=== PATIENT | female | born 1940 | race Caucasian/White ===

== ENCOUNTER → 2017-03-27 11:27 | Outpatient (CLI) | payer MEDICARE, SELFPAY ==
[2017-03-27 12:31] LABS: Basophils # 0.1 K/mm3 (0-0.2); Eosinophils # 0.2 K/mm3 (0.0-0.4); Eosinophils % 2.5 % (0.1-12.0); Hematocrit 44.3 % (37.0-47.0); Hemoglobin 14.2 g/dL (12.2-16.2); Lymphocytes # 1.8 K/mm3 (0.7-4.5); Lymphocytes % 28.2 K/mm3 (10-50); Mean Corpuscular HGB Conc 32.2 g/dL (31.8-35.4); Mean Corpuscular Hemoglobin 30.4 pg (27.0-31.2); Mean Corpuscular Volume 94.5 fl (81-99); Mean Platelet Volume 7.3 fl (7.4-10.4); Monocytes # 0.4 K/mm3 (0.1-1.0); Monocytes % 6.2 % (1.7-9.3); Neutrophils # 3.8 K/mm3 (1.8-7.8); Neutrophils % 62.1 % (37.0-80.0); Platelet Count 361 K/mm3 (142-424); Red Blood Count 4.68 M/mm3 (4.20-5.40); Red Cell Distribution Width 12.6 % (11.5-17.5); White Blood Count 6.2 K/mm3 (4.8-10.8)
[2017-03-27 13:15] LABS: Anion Gap 7.2 mEq/L (5-15); Blood Urea Nitrogen 20 mg/dL (7-18); Carbon Dioxide 35 mmol/L (21.0-32.0); Chloride 101 mmol/L (98-107); Creatinine,Serum 0.58 mg/dL (0.55-1.02); Estimated Glomerular Filt Rate > 60 ml/min (>60); GFR (African American) > 60 ML/MIN (>60); Glucose 107 mg/dL (74-106); Potassium 4.2 mmoL/L (3.5-5.1); Sodium 139 mmol/L (136-145)
== END ==
PROVIDERS: PCP Surgery; Visit Provider Surgery
DX: K43.2 Incisional hernia without obstruction or gangrene (principal); Z01.818 Encounter for other preprocedural examination
CPT/HCPCS: 36415; 80048; 85025

== ENCOUNTER 2017-03-30 06:54 | Day surgery (SDC) | payer MEDICARE, SELFPAY ==
[2017-03-29 16:52] VITALS: BMI 28.3
[2017-03-30] VITALS (11 sets, daily range): BP systolic 101–135; BP diastolic 56–84; PULSE 71–83; RESP 16–18; TEMP 36.4–43; O2SAT 91–96
--- NOTE | 2017-03-30 08:03 | HMH.ANESCL ---
[facility] Anesthesia Checklist - Patient Identification Patient Identification: Arm Band - Structural Data Admitted From: Home Planned Operative Procedure/s: ventral hernia repair Consent for Planned Operative Procedure(s) Verified: Yes Verified Documents: Surgical Consent - NPO Status Verified Time NPO: 00:00 - Chart Verification Results Verified: CBC - Additional verifications Patient : No Anesthesia Reactions: No Previous Colonoscopy: Yes - Cardiovascular Assessment Heart Sounds: S1 & S2 Pulse Strength: Strong Pulse Rhythm: Regular Peripheral Edema: No - Airway Assessment C-Spine Mobility Assessed: Yes TMJ Mobility Assessed: Yes Dentition: Partials - Neurological Assessment Level of Consciousness: Awake, Alert, Follows Commands Hx Seizures: No Numbness or tingling in extremities: No - Genitourinary Assessment Urinary Incontinence: None - Anesthesia Plan Anesthesia Risk discussed: Yes Anesthesia Plan: Patient unable to respond/answer ASA Class: III Anesthesia Type: General [facility] Anesthesia HX I have reviewed the patient's past medical history: Yes Medical History: Reports:: Congestive Heart Failure, Chronic Obstructive Pulmonary Disease (COPD), Coronary Artery Disease, Deep Vein Thrombosis, Gastroesophageal Reflux Disease, Hypertension, MRSA (after bowel resection) Denies:: Cancer, Diabetes Mellitus Type 1, Diabetes Mellitus Type 2 Other Medical History: Reports: Thyroid Disease Laterality Cases: Left: Cataract, Right: Total Hip Replacement, Bilateral: Tonsillectomy Other Surgeries: Yes: Hysterectomy-Total. No: Pacemaker Amputation: No Fractures: Yes (hip & femur) *Family Hx:: Anemia, Cancer, Coronary Artery Disease, Heart Attack, Hyperlipidemia, Hypertension, Stroke
--- NOTE | 2017-03-30 08:06 | P.PN_ITS ---
[facility] Anesthesia Checklist - Patient Identification Patient Identification: Arm Band - Structural Data Admitted From: Home Planned Operative Procedure/s: ventral hernia repair Consent for Planned Operative Procedure(s) Verified: Yes Verified Documents: Surgical Consent - NPO Status Verified Time NPO: 00:00 - Chart Verification Results Verified: CBC - Additional verifications Patient : No Anesthesia Reactions: No Previous Colonoscopy: Yes - Cardiovascular Assessment Heart Sounds: S1 & S2 Pulse Strength: Strong Pulse Rhythm: Regular Peripheral Edema: No - Airway Assessment C-Spine Mobility Assessed: Yes TMJ Mobility Assessed: Yes Dentition: Partials - Neurological Assessment Level of Consciousness: Awake, Alert, Follows Commands Hx Seizures: No Numbness or tingling in extremities: No - Genitourinary Assessment Urinary Incontinence: None - Anesthesia Plan Anesthesia Risk discussed: Yes Anesthesia Plan: Patient unable to respond/answer ASA Class: III Anesthesia Type: General [facility] Anesthesia HX I have reviewed the patient's past medical history: Yes Medical History: Reports:: Congestive Heart Failure, Chronic Obstructive Pulmonary Disease (COPD), Coronary Artery Disease, Deep Vein Thrombosis, Gastroesophageal Reflux Disease, Hypertension, MRSA (after bowel resection) Denies:: Cancer, Diabetes Mellitus Type 1, Diabetes Mellitus Type 2 Other Medical History: Reports: Thyroid Disease Laterality Cases: Left: Cataract, Right: Total Hip Replacement, Bilateral: Tonsillectomy Other Surgeries: Yes: Hysterectomy-Total. No: Pacemaker Amputation: No Fractures: Yes (hip & femur) *Family Hx:: Anemia, Cancer, Coronary Artery Disease, Heart Attack, Hyperlipidemia, Hypertension, Stroke
--- NOTE | 2017-03-30 10:17 | SUR.OPER ---
1000-IPC ON AND GOING TO LLE PER PT REQUEST R/T PAIN AND DISCOMFORT OF EXTREMITY. NOTIFIED
--- NOTE | 2017-03-30 11:14 | HMH.OPNOTE ---
Date of procedure: 03/30/17 Pre-op Diagnosis:: Recurrent incisional ventral hernia Post-op diagnosis:: same Procedure performed:: Open repair of recurrent ventral incisional hernia with VentraLex patch Surgeon:: Perry Sebastian MD Anesthesia: other (General with LMA) Estimated blood loss (mL): 10 Operative findings:: 2.5 cm defect at site of prior primary repair Operative note:: After informed consent was obtained, the patient was taken to the operating room and placed in the supine position. General anesthesia was induced and her abdomen was prepped and draped in a sterile fashion. An incision was made overlying the palpable defect. A combination of sharp dissection, blunt dissection, and electrocautery was utilized to transect through the deeper subcutaneous tissue. A complex hernia sac was encountered and resected. A 2.5 cm defect was encountered. The lateral and superior margins were free of underlying tissue; however, a loop of small bowel was densely adhered to the inferior margin. Careful dissection was utilized to free the loop of small bowel. A 6.4 cm VentraLex plug was placed in position and secured with interrupted Ethibond suture. Interrupted Ethibond was then utilized to create a primary closure over the mesh. The wound was thoroughly irrigated. The deep subcutaneous tissue was reapproximated with 2-0 Vicryl and skin was closed with 4-0 nylon in an interrupted fashion. Sterile dressings were applied. The patient's anesthetic agents were reversed and she was transferred to recovery after removal of her laryngeal mask airway. Pathology: other (Hernia sac) Condition: stable Disposition: PACU Specimens:: Hernia sac Complications:: No immediate
--- NOTE | 2017-03-30 11:31 | P.PN_ITS ---
[facility] Anesthesia Record Part I Intake, IV Amount: 1,400 Estimated blood loss (mL): 25 Urine output (mL): 400 Blood Products used (#): none Blood Pressure: 135/84 SaO2: 92 Pulse Rate: 80 Respiratory Rate: 18 Temperature: 97.9 F Patient is:: Drowsy, Stable Stable to PACU at:: 11:27
--- NOTE | 2017-03-30 11:31 | HMH.ANESII ---
[facility] Anesthesia Record Part II Discharge Time: 11:57 Destination: Surgical Day Care (OP Surgery) PACU nurse assessment reviewed?: Yes Patient Condition:: Good Anesthesia Complications:: None
[2017-03-30 16:00] LABS: Microscopic,Cath URINE MICROSCOPIC (MICROSCOPIC)
[2017-03-30 16:19] LABS: Appearance,Urine/Cath CLEAR (Clear); Bilirubin,Cath Negative (Negative); Blood, Urine/Cath Negative (Negative); Color,Urine/Cath YELLOW (Yellow); Glucose,Urine/Cath (UA) Negative (Negative); Ketones,Urine/Cath Negative (Negative); Leukocyte Esterase,Cath Negative (Negative); Nitrate,Cath Negative (Negative); Protein,Urine/Cath Negative (Negative); Urobilinogen,Cath 0.2 EU/dl (0.2)
[2017-03-30 16:30] LABS: Bacteria,Urine/Cath TRACE /lpf
== END 2017-03-30 13:18 | disposition home or self-care (01) ==
LOC: OR 07:01
PROVIDERS: PCP Internal Medicine; Visit Provider Surgery
DX: K43.2 Incisional hernia without obstruction or gangrene (principal)
CPT/HCPCS: 49565; 49568; 81001; 88302; 96374; C1781; J0131; J2405; J2710

== ENCOUNTER → 2017-07-26 12:51 | Outpatient (POV) | payer MEDICARE, SELFPAY | PROVIDERS: Visit Provider Dermatology | DX: Z00.00 Encounter for general adult medical examination without abnormal findings (principal) ==

== ENCOUNTER → 2017-12-05 14:21 | Outpatient (POV) | payer MEDICARE, SELFPAY | DX: Z00.00 Encounter for general adult medical examination without abnormal findings (principal) ==

== ENCOUNTER → 2018-07-30 14:00 | Outpatient (POV) | payer MEDICARE, SELFPAY | PROVIDERS: Visit Provider Dermatology | DX: Z00.00 Encounter for general adult medical examination without abnormal findings (principal) ==

== ENCOUNTER → 2018-11-27 11:46 | Outpatient (CLI) | payer MEDICARE, SELFPAY ==
--- NOTE | 2018-11-27 12:00 | CT_ITS ---
PROCEDURE: CT ABDOMEN PELVIS WO CON CLINICAL HISTORY: LLQ PAIN,ABD PAIN COMPARISON: ABDPELW/O CT ABD PELVIS W/O CONTRAST from 10/21/2016 TECHNIQUE: Axial images obtained with sagittal and coronal reformats. All CT scans at the facility use one or more dose reduction, viz: automated exposure control, ma/kV adjustment per patient size (including targeted exams where dose is matched to indication, i.e. head), or iterative reconstruction technique. FINDINGS: There is a large hiatal hernia which contains the entire stomach as well as the hepatic flexure and proximal transverse colon. There is thickening of the distal esophagus and the GE junction as well as the cardia of the stomach. The pancreas, adrenal glands, and liver have an unremarkable appearance as does the spleen. Left renal cysts are present. Nonobstructing 2 mm stone is present in the lower pole of the right kidney. No intestinal obstruction or free air. No evidence of appendicitis or diverticulitis. There is a mild amount of retained colonic feces. Postsurgical changes are present involving the colon in the sigmoid region with scattered diverticula.. There is mild distention of the urinary bladder. There is lumbar curvature convex left with multilevel facet arthritic change and degenerative disc disease. There are post hysterectomy changes total right hip prosthesis is present. There are small bilateral inguinal hernias containing fat. IMPRESSION: 1. No acute abdominal or pelvic findings. 2. Large hiatal hernia. 3. Nonacute findings as described above. Dictated by: Lang Mccord MD 11/27/2018 14:50 <Electronically signed by Lang Mccord MD in [place]> 11/27/2018 14:50
== END ==
PROVIDERS: PCP Internal Medicine; Visit Provider Internal Medicine
DX: R10.32 Left lower quadrant pain (principal); R10.9 Unspecified abdominal pain
CPT/HCPCS: 74176

== ENCOUNTER → 2019-01-22 14:02 | Outpatient (POV) | payer MEDICARE, SELFPAY | DX: Z00.00 Encounter for general adult medical examination without abnormal findings (principal) ==

== ENCOUNTER → 2019-10-14 08:25 | Outpatient (CLI) | payer MEDICARE, SELFPAY ==
--- NOTE | 2019-10-14 08:37 | CT_ITS ---
PROCEDURE: CT ANGIO CHEST CLINCIAL INDICATION: SHORTNESS OF BREATH Shortness of air COMPARISON: No exams were available for comparison TECHNIQUE: IV Contrast: 70ML OPTIRAY 350 Axial images obtained with sagittal and coronal reformats. All CT scans at the facility use one or more dose reduction, viz: automated exposure control, ma/kV adjustment per patient size (including targeted exams where dose is matched to indication, i.e. head), or iterative reconstruction technique. FINDINGS: HEART AND MEDIASTINAL STRUCTURES: Unremarkable. LUNGS AND PLEURAL SPACES: Unremarkable. BONY STRUCTURES: No acute bony abnormalities apparent. UPPER ABDOMEN: Unremarkable. ADDITIONAL FINDINGS: No other significant abnormalities. IMPRESSION: Dictated by: Lang Mccord MD 10/14/2019 13:24 Electronically signed by Lang Mccord MD in [place] 10/14/2019 13:24
[2019-10-14 08:43] LABS: Blood Urea Nitrogen 21 mg/dl (7-17); Estimated Glomerular Filt Rate 96 ml/min (>60); GFR (African American) 116 ML/MIN (>60)
== END ==
PROVIDERS: Visit Provider Internal Medicine Cardiovascular Disease
DX: R06.02 Shortness of breath (principal); R06.00 Dyspnea, unspecified; Z86.718 Personal history of other venous thrombosis and embolism
CPT/HCPCS: 36415; 71275; 82565; 84520; Q9967

== ENCOUNTER → 2019-11-03 16:05 | Outpatient (CLI) | payer MEDICARE, SELFPAY | PROVIDERS: Visit Provider Urology | DX: N39.0 Urinary tract infection, site not specified (principal) | CPT/HCPCS: 87086; 87088; 87186 ==

== ENCOUNTER → 2020-01-05 16:05 | Outpatient (CLI) | payer MEDICARE, SELFPAY | PROVIDERS: Visit Provider Urology | DX: N39.0 Urinary tract infection, site not specified (principal) | CPT/HCPCS: 87086; 87088; 87186 ==

== ENCOUNTER → 2020-06-22 12:59 | Outpatient (CLI) | payer MEDICARE, SELFPAY ==
--- NOTE | 2020-06-22 13:07 | CT_ITS ---
PROCEDURE: CT ABDOMEN PELVIS WO CON CLINICAL INDICATION: HEMATURIA COMPARISON: No exams were available for comparison TECHNIQUE: Axial images obtained with sagittal and coronal reformats. All CT scans at the facility use one or more dose reduction, viz: automated exposure control, ma/kV adjustment per patient size (including targeted exams where dose is matched to indication, i.e. head), or iterative reconstruction technique. 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 The heart size is normal. Atherosclerotic vascular calcification of the thoracic aorta and the coronary arteries are noted. Minor bibasal atelectasis noted. ABDOMEN & PELVIS: Evaluation of the upper abdominal solid viscera a limited due to lack of intravenous contrast. The liver, spleen, pancreas, and adrenal glands show no acute finding. No evidence of renal or ureteric calculi. Evaluation of the pelvis is limited due to the presence of beam hardening artifact secondary to right hip prosthesis. The visualized bladder demonstrates no focal abnormality within the limitations of unenhanced study. Focal hypodense lesions are noted in the left kidney measuring up to 2.5 centimeters. Few colonic diverticula without evidence of diverticulitis. No evidence of obstruction. Moderate fecal retention of the colon is noted. Postsurgical changes are noted in the sigmoid colon. No significant mesenteric or retroperitoneal adenopathy. Small bilateral fat containing inguinal hernias. The pelvic structures are unremarkable. No focal fluid collections or free intraperitoneal air. No significant mesenteric or retroperitoneal adenopathy. There is levoscoliosis of the No pelvic mass, abnormal fluid collection, or focal inflammatory change of the pelvis. No acute bony anomalies. 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 No cause for hematuria is identified on the current unenhanced study. Evaluation of the bladder is limited due to the presence of beam hardening artifact from right hip prosthesis. If clinically indicated, CT urogram should be considered for further evaluation. Moderate fecal retention of the colon. Postsurgical changes in the sigmoid colon noted. Dictated by: Haley Car 06/22/2020 15:00 Haley Car in [place] 06/22/2020 15:00
== END ==
PROVIDERS: PCP Internal Medicine; Visit Provider Internal Medicine
DX: R31.0 Gross hematuria (principal)
CPT/HCPCS: 74176

== ENCOUNTER → 2020-06-26 10:25 | Outpatient (CLI) | payer MEDICARE, SELFPAY ==
[2020-06-26 11:27] LABS: Basophils # 0.1 K/mm3 (0-0.2); Basophils % 1.1 % (0.1-2.0); Eosinophils # 0.2 K/mm3 (0.0-0.4); Eosinophils % 2.6 % (0.1-12.0); Hematocrit 43.8 % (37.0-47.0); Hemoglobin 13.5 g/dL (12.2-16.2); Lymphocytes # 1.8 K/mm3 (0.7-4.5); Mean Corpuscular HGB Conc 30.8 g/dL (31.8-35.4); Mean Corpuscular Hemoglobin 28.6 pg (27.0-31.2); Mean Corpuscular Volume 92.9 fl (81-99); Mean Platelet Volume 7.8 fl (7.4-10.4); Monocytes # 0.4 K/mm3 (0.1-1.0); Monocytes % 5.9 % (1.7-9.3); Neutrophils # 4.6 K/mm3 (1.8-7.8); Neutrophils % 64.4 % (37.0-80.0); Platelet Count 339 K/mm3 (142-424); Red Blood Count 4.71 M/mm3 (4.20-5.40); Red Cell Distribution Width 12.4 % (11.5-17.5); White Blood Count 7.1 K/mm3 (4.8-10.8)
[2020-06-26 12:09] LABS: Alanine Aminotransferase 18 U/L (12-78); Albumin Level 4.1 g/dl (3.5-5.0); Albumin/Globulin Ratio 1.6 (1.1-1.8); Alkaline Phosphatase 73 U/L (38-126); Aspartate Amino Transferase 46 U/L (14-36); Bilirubin,Total 0.6 mg/dl (0.2-1.3); Blood Urea Nitrogen 20 mg/dl (7-17); Calcium 9.9 mg/dl (8.4-10.2); Carbon Dioxide 21 mmol/L (22.0-30.0); Chloride 109 mmol/L (98-107); Estimated Glomerular Filt Rate 118 ml/min (>60); GFR (African American) 143 ML/MIN (>60); Globulin 2.6 g/dL (1.3-3.2); Glucose 94 mg/dl (74-100); Sodium 140 mmol/L (136-145); Total Protein,Serum 6.7 g/dl (6.3-8.2)
== END ==
PROVIDERS: Visit Provider Internal Medicine Cardiovascular Disease
DX: R06.02 Shortness of breath (principal)
CPT/HCPCS: 36415; 80053; 85025

== ENCOUNTER 2020-11-08 18:12 | Emergency (ER) | payer MEDICARE, SELFPAY ==
[2020-11-08 18:13] VITALS: BP 121/72; PULSE 74; RESP 18; TEMP 36.8; O2SAT 97; BMI 26.1
--- NOTE | 2020-11-08 19:30 | CT_ITS ---
PROCEDURE INFORMATION: Exam: CT Head Without Contrast Exam date and time: 11/08/2020 7:30 PM Age: 80 years old Clinical indication: Injury or trauma; Blunt trauma (contusions or hematomas); Patient HX: Fall hit left eye and left lip TECHNIQUE: Imaging protocol: Computed tomography of the head without contrast. Radiation optimization: All CT scans at this facility use at least one of these dose optimization techniques: automated exposure control; mA and/or kV adjustment per patient size (includes targeted exams where dose is matched to clinical indication); or iterative reconstruction. COMPARISON: NECKW CT SOFT TISSUE NECK W/CONTRAST 10/29/2014 1:47 PM FINDINGS: Brain: White matter changes compatible with small vessel occlusive change. No mass. No hemorrhage. Cerebral ventricles: No ventriculomegaly. Paranasal sinuses: Partial opacification of the right maxillary sinus. Mastoid air cells: Visualized mastoid air cells are well aerated. Bones/joints: Postsurgical changes to the jaw. No acute fracture. Soft tissues: Minimal left periorbital soft tissue swelling. IMPRESSION: White matter changes compatible with small vessel occlusive change. Paranasal sinus disease.
--- NOTE | 2020-11-08 19:30 | XR_ITS ---
PROCEDURE INFORMATION: Exam: XR Right Wrist Exam date and time: 11/08/2020 7:30 PM Age: 80 years old Clinical indication: Injury or trauma; Blunt trauma (contusions or hematomas); Patient HX: Fall right wrist pain TECHNIQUE: Imaging protocol: XR Right wrist. Views: 3 or more views. COMPARISON: No relevant prior studies available. FINDINGS: Bones/joints: Comminuted impacted mildly dorsally angulated fracture of the distal radius which extends to the articular surface. Osteopenia with advanced degenerative changes most prominent at the 1st CMC. Soft tissues: Soft tissue swelling overlying the wrist. IMPRESSION: Comminuted impacted mildly dorsally angulated fracture of the distal radius which extends to the articular surface.
--- NOTE | 2020-11-08 21:37 | HMH.EDFALL ---
ED Disposition Clinical Impression: Fracture of wrist Qualifiers: Encounter type: initial encounter Fracture type: closed Laterality: right Qualified Code(s): S62.101A - Fracture of unspecified carpal bone, right wrist, initial encounter for closed fracture Disposition: Home, Self-Care Condition on Discharge: Good Instructions: DI for Wrist Fracture Additional Instructions: call ortho in am Referrals: Rashad Hitchcock [Primary Care Provider] - Alexis Car MD [Staff Physician] - - Critical Care Critical Care Time: No Attestation: On 11/08/20, the high probability of a clinically significant, sudden or life threatening deterioration of the following system(s) required my full and direct attention, intervention and personal management. The time I documented below is in addition to time spent performing reported procedures but includes the following listed in this critical care notation. Medical Decision Making - Medical Records Medical records reviewed: Yes: I reviewed the patient's medical records. - Erik Inquiry Pt receiving controlled substance: No Vital Signs: 11/08/20 18:13 Temperature 98.3 F Temperature Source Oral Pulse Rate [Left] 74 Respiratory Rate 18 Blood Pressure [Right Arm] 121/72 Blood Pressure Mean [Right Arm] 88 Blood Pressure Source [Right Arm] Automatic Cuff 02 Sat by Pulse Oximetry 97 Oxygen Delivery Method Room Air - Lab Data Lab results reviewed: Yes: I reviewed the patient's lab results. Lab Results 11/08/20 22:00: WBC 12.7 H, RBC 4.61, Hgb 13.9, Hct 41.4, MCV 89.7, MCH 30.0, MCHC 33.5, RDW 13.1, Plt Count 376, MPV 7.2 L, Neut % (Auto) 80.7 H, Lymph % (Auto) 14.0, [place] % (Auto) 3.8, Eos % (Auto) 1.0, Baso % (Auto) 0.4, Neut # (Auto) 10.2 H, Lymph # (Auto) 1.8, [place]bon # (Auto) 0.5, Eos # (Auto) 0.1, Baso # (Auto) 0.1 11/08/20 22:00: Sodium 136, Potassium 3.3 L, Chloride 97 L, Carbon Dioxide 30, Anion Gap 12.3, BUN 17, Creatinine 0.60, Estimated Creat Clear 49, Estimated GFR 96, Est GFR ( Amer) 116, Glucose 105 H, Calcium 9.8, Total Bilirubin 0.5, AST 32, ALT 19, Alkaline Phosphatase 83, Total Protein 7.4, Albumin 4.4, Globulin 3.0, Albumin/Globulin Ratio 1.5 Result diagrams: 11/08/20 22:00 11/08/20 22:00 Orders (Tests/Meds): ORDERS Category Date Time Status XR chest 2V Stat Exams 11/08/20 21:38 Taken XR pelvis 1-2V Stat Exams 11/08/20 21:38 Taken UA [Urinalysis and Microscopic] Stat Lab 11/08/20 21:38 Ordered - Radiology Data #1 Image(s): Chest, Pelvis Image Reviewed: Yes I have reviewed radiologist's interpretation Preliminary Findings: Normal/NAD - CT Data CT Scan: Head, C-Spine Time Received: 23:[address] Reviewed: Yes: I have viewed the radiologist's interpretation Preliminary Findings: Abnormal Medical Decision Narrative: fall with acute rt wrist fx and otherwise stable Fall HPI - General Chief Complaint: Fall Stated Complaint: ao 11/08 1700 FEL WRIST. HIT MOUTH Time Seen by Provider: 11/08/20 21:37 Mode of Arrival: Wheelchair Source of Information: Patient, Medical Record Limitations: No Limitations Description of Symptoms (Recalled from ER Triage Doc. by RN): patient fell at home today around 1700. patient injured right wrist, upper lip laceration, and hit head in fall. no LOC, no vomiting/nausea. patient on Eliquis. - History of Present Illness HPI Narrative: fall at home with rt wrist injury and head w/o loc - hit mouth also with injury to partial plate - no loc MD complaint: fall Onset (ago): hour(s) Fall from: standing Fall witnessed: no Place fall occurred: home Loss of consciousness: none Prolonged down time: no Context: tripped/slipped Location of injury: head, neck Location of injury - extremities: Right: hand Severity: moderate Associated symptoms (after fall): denies - Related Data Home Medications Medication Instructions Recorded Confirmed Aspirin [Aspir 81] 81 mg PO DAILY 03/28/17 11/08/20 C
--- NOTE | 2020-11-08 21:38 | XR_ITS ---
PROCEDURE INFORMATION: Exam: XR Chest Exam date and time: 11/08/2020 9:38 PM Age: 80 years old Clinical indication: Injury or trauma; Fall; Blunt trauma (contusions or hematomas) TECHNIQUE: Imaging protocol: XR of the chest. Views: 2 views. COMPARISON: CT ANGIO CHEST 10/14/2019 9:21 AM FINDINGS: Lungs: The lungs are hyperinflated, consistent with underlying small airways disease. Atelectatic changes within the lung bases without focal pneumonia. Pleural spaces: There is no evidence of pneumothorax. Heart/Mediastinum: The heart demonstrates mild diffuse enlargement. Diaphragm: There is nonspecific elevation of the left hemidiaphragm. Bones/joints: Unremarkable. IMPRESSION: 1. The heart demonstrates mild diffuse enlargement. 2. The lungs are hyperinflated, consistent with underlying small airways disease. 3. Atelectatic changes within the lung bases without focal pneumonia.
--- NOTE | 2020-11-08 21:38 | XR_ITS ---
PROCEDURE INFORMATION: Exam: XR Pelvis Exam date and time: 11/08/2020 9:38 PM Age: 80 years old Clinical indication: Injury or trauma; Fall; Blunt trauma (contusions or hematomas); Bilateral; Pelvic region; Prior surgery; Surgery date: 6+ months; Surgery type: Hip pinning; Patient HX: Patient fell and hit forehead and wrist on floor. TECHNIQUE: Imaging protocol: XR pelvis. Views: 1 or 2 view. COMPARISON: CT ABDOMEN PELVIS WO CON 06/22/2020 1:11 PM FINDINGS: Bones/joints: Status post right total hip replacement without evidence of complication. Advanced degenerative changes of the lower lumbar spine. There is no evidence of acute fracture. There is no evidence of joint malalignment or dislocation. Sclerotic changes noted at the pubic symphysis. Soft tissues: Unremarkable. Intraperitoneal space: Postoperative changes noted within the left pelvis. Gastrointestinal tract: A large amount of stool is noted throughout the colon. IMPRESSION: 1. Status post right total hip replacement without evidence of complication. 2. Advanced degenerative changes of the lower lumbar spine. 3. No evidence of acute fracture. 4. No evidence of acute dislocation. 5. A large amount of stool is noted throughout the colon.
--- NOTE | 2020-11-08 21:39 | CT_ITS ---
PROCEDURE INFORMATION: Exam: CT Cervical Spine Without Contrast Exam date and time: 11/08/2020 9:39 PM Age: 80 years old Clinical indication: Injury or trauma; Fall; Blunt trauma; Prior surgery; Surgery date: 6+ months; Surgery type: Partial thyroidectomy; Patient HX: Patient fell while feeding cats and hit her forehead on floor. TECHNIQUE: Imaging protocol: Computed tomography images of the cervical spine without contrast. Radiation optimization: All CT scans at this facility use at least one of these dose optimization techniques: automated exposure control; mA and/or kV adjustment per patient size (includes targeted exams where dose is matched to clinical indication); or iterative reconstruction. COMPARISON: NECKW CT SOFT TISSUE NECK W/CONTRAST 10/29/2014 1:47 PM FINDINGS: Bones/joints: Advanced multilevel degenerative changes of the spine. Moderate scoliosis. No fracture. Lungs: Lung apices are normal. Soft tissues: No soft tissue swelling. IMPRESSION: Chronic changes without acute process.
[2020-11-08 22:09] LABS: Basophils # 0.1 K/mm3 (0-0.2); Basophils % 0.4 % (0.1-2.0); Eosinophils # 0.1 K/mm3 (0.0-0.4); Hematocrit 41.4 % (37.0-47.0); Hemoglobin 13.9 g/dL (12.2-16.2); Lymphocytes # 1.8 K/mm3 (0.7-4.5); Mean Corpuscular HGB Conc 33.5 g/dL (31.8-35.4); Mean Corpuscular Volume 89.7 fl (81-99); Mean Platelet Volume 7.2 fl (7.4-10.4); Monocytes # 0.5 K/mm3 (0.1-1.0); Monocytes % 3.8 % (1.7-9.3); Neutrophils # 10.2 K/mm3 (1.8-7.8); Neutrophils % 80.7 % (37.0-80.0); Platelet Count 376 K/mm3 (142-424); Red Blood Count 4.61 M/mm3 (4.20-5.40); Red Cell Distribution Width 13.1 % (11.5-17.5); White Blood Count 12.7 K/mm3 (4.8-10.8)
[2020-11-08 22:19] LABS: Alanine Aminotransferase 19 U/L (12-78); Albumin Level 4.4 g/dl (3.5-5.0); Albumin/Globulin Ratio 1.5 (1.1-1.8); Alkaline Phosphatase 83 U/L (38-126); Anion Gap 12.3 mEq/L (5-15); Aspartate Amino Transferase 32 U/L (14-36); Bilirubin,Total 0.5 mg/dl (0.2-1.3); Blood Urea Nitrogen 17 mg/dl (7-17); Calcium 9.8 mg/dl (8.4-10.2); Carbon Dioxide 30 mmol/L (22.0-30.0); Chloride 97 mmol/L (98-107); Creatinine Clearance Estimated 49 mL/min (50-200); Estimated Glomerular Filt Rate 96 ml/min (>60); GFR (African American) 116 ML/MIN (>60); Glucose 105 mg/dl (74-100); Potassium 3.3 mmoL/L (3.5-5.1); Sodium 136 mmol/L (136-145); Total Protein,Serum 7.4 g/dl (6.3-8.2)
[2020-11-08 23:56] VITALS: BP 120/75; PULSE 78; RESP 19; TEMP 36.9; O2SAT 96
== END 2020-11-09 | disposition home or self-care (01) ==
PROVIDERS: Emergency Provider Emergency Medicine; PCP Internal Medicine
DX: S52.501A Unspecified fracture of the lower end of right radius, initial encounter for closed fracture (principal); W01.0XXA Fall on same level from slipping, tripping and stumbling without subsequent striking against object, initial encounter; Y92.019 Unspecified place in single-family (private) house as the place of occurrence of the external cause; S00.511A Abrasion of lip, initial encounter; S00.91XA Abrasion of unspecified part of head, initial encounter; I10 Essential (primary) hypertension; K21.9 Gastro-esophageal reflux disease without esophagitis; J44.9 Chronic obstructive pulmonary disease, unspecified; I50.9 Heart failure, unspecified; Z86.718 Personal history of other venous thrombosis and embolism; Z79.01 Long term (current) use of anticoagulants; Z96.641 Presence of right artificial hip joint
CPT/HCPCS: 36415; 70450; 71046; 72125; 72170; 73110; 80053; 85025; 99283

== ENCOUNTER → 2020-11-16 15:06 | Outpatient (CLI) | payer MEDICARE, SELFPAY ==
--- NOTE | 2020-11-16 15:15 | XR_ITS ---
PROCEDURE: XR WRIST RT MIN 3V CLINICAL INDICATION: right wrist fracture COMPARISON: CR XR WRIST RT MIN 3V from 11/08/2020 FINDINGS: Study is obtained through a cast. There is good alignment of the impacted distal radial fracture with mild dorsal angulation and mild dorsal displacement of the distal fracture fragment. There are osteoarthritic changes at the 1st metacarpal-carpal joint with heterotopic ossification laterally. IMPRESSION: Good alignment with mild dorsal angulation and dorsal displacement of the distal radial fracture fragment Dictated by: Lang Mccord MD 11/16/2020 15:27 Lang Mccord MD in [place] 11/16/2020 15:27
== END ==
PROVIDERS: PCP Orthopaedic Surgery; Visit Provider Internal Medicine
DX: S52.571A Other intraarticular fracture of lower end of right radius, initial encounter for closed fracture (principal)
CPT/HCPCS: 73110

== ENCOUNTER → 2020-11-24 13:17 | Outpatient (CLI) | payer MEDICARE, SELFPAY ==
--- NOTE | 2020-11-24 13:24 | XR_ITS ---
PROCEDURE: XR WRIST RT MIN 3V CLINICAL INDICATION: right wrist fracture; XR IN CAST COMPARISON: CR XR WRIST RT MIN 3V from 11/08/2020 CR XR WRIST RT MIN 3V from 11/16/2020 FINDINGS: Studies obtained through a cast. Mildly impacted distal radial fracture is present with intra-articular component. There is good alignment. Degenerative changes are present at the 1st metacarpal-carpal joint with periarticular calcification. IMPRESSION: No change mildly impacted distal radial fracture Dictated by: Lang Mccord MD 11/24/2020 15:43 Lang Mccord MD in [place] 11/24/2020 15:43
== END ==
PROVIDERS: PCP Internal Medicine; Visit Provider Orthopaedic Surgery
DX: S62.109A Fracture of unspecified carpal bone, unspecified wrist, initial encounter for closed fracture (principal)
CPT/HCPCS: 73110

== ENCOUNTER → 2020-12-22 09:14 | Outpatient (CLI) | payer MEDICARE, SELFPAY ==
--- NOTE | 2020-12-22 09:19 | XR_ITS ---
PROCEDURE: XR WRIST RT MIN 3V CLINICAL INDICATION: rt wrist fx, OUT OF CAST COMPARISON: CR XR WRIST RT MIN 3V from 11/08/2020 CR XR WRIST RT MIN 3V from 11/16/2020 CR XR WRIST RT MIN 3V from 11/24/2020 FINDINGS: Healing distal radial fracture is present with impaction and minimal dorsal angulation of the distal fracture fragment. An intra-articular component is also noted. There is sclerosis developing at the transverse fracture line with callus formation. Osteoarthritic changes 1st carpal metacarpal joint Other findings:None. IMPRESSION: Healing distal radial fracture Dictated by: Lang Mccord MD 12/22/2020 13:17 Lang Mccord MD in [place] 12/22/2020 13:17
== END ==
PROVIDERS: PCP Internal Medicine; Visit Provider Orthopaedic Surgery
DX: S52.501A Unspecified fracture of the lower end of right radius, initial encounter for closed fracture (principal)
CPT/HCPCS: 73110

== ENCOUNTER → 2021-02-02 09:10 | Outpatient (CLI) | payer MEDICARE, SELFPAY ==
--- NOTE | 2021-02-02 09:14 | XR_ITS ---
PROCEDURE: XR WRIST RT MIN 3V CLINICAL INDICATION: right wrist fracture COMPARISON: CR XR WRIST RT MIN 3V from 11/08/2020 CR XR WRIST RT MIN 3V from 11/16/2020 CR XR WRIST RT MIN 3V from 11/24/2020 CR XR WRIST RT MIN 3V from 12/22/2020 FINDINGS: Healing distal radial fracture with good alignment and mild dorsal angulation of the distal fracture fragment. Fracture line not readily visible. Osteoarthritic changes are present at the 1st carpal metacarpal joint IMPRESSION: Healed distal radial fracture Dictated by: aLng Mccord MD 02/02/2021 15:39 Lang Mccord MD in [place] 02/02/2021 15:39
== END ==
PROVIDERS: PCP Internal Medicine; Visit Provider Orthopaedic Surgery
DX: S62.101A Fracture of unspecified carpal bone, right wrist, initial encounter for closed fracture (principal)
CPT/HCPCS: 73110

== ENCOUNTER → 2021-02-21 08:53 | Outpatient (CLI) | payer MEDICARE, SELFPAY ==
--- NOTE | 2021-02-21 08:53 | XR_ITS ---
PROCEDURE: XR DEXA AXIAL SKELETON CLINICAL HISTORY: screening for osteoporosis COMPARISON: No exams were available for comparison FINDINGS: Radius 1/3 density is 0.528 grams/centimeters sq with T-score of -2.8. The left hip BMD is 0.578 with a T-score of -3.0. The lumbar spine BMD is 1.244 with a T-score of 1.8. There is lumbar scoliosis convex left.. IMPRESSION: This patient is considered osteoporotic according to the World Health Organization criteria. Fracture risk is high. Treatment is advised. Based on these results a follow-up exam is recommended in 1 year. Dictated by: Lang Mccord MD 02/21/2021 10:14 Lang Mccord MD in [facility] 02/21/2021 10:14
== END ==
PROVIDERS: PCP Internal Medicine; Visit Provider Orthopaedic Surgery
DX: M81.0 Age-related osteoporosis without current pathological fracture (principal)
CPT/HCPCS: 77080

== ENCOUNTER → 2021-05-13 15:37 | Outpatient (CLI) | payer MEDICARE, SELFPAY | PROVIDERS: Visit Provider Urology | DX: N39.0 Urinary tract infection, site not specified (principal) | CPT/HCPCS: 87086; 87088; 87186 ==

== ENCOUNTER → 2021-08-03 14:07 | Outpatient (CLI) | payer MEDICARE, SELFPAY ==
--- NOTE | 2021-08-03 14:11 | CT_ITS ---
FINAL REPORT CLINICAL HISTORY: HEADACHES COMPARISON: November 08, 2020 FINDINGS: CT HEAD/BRAIN W/O CONTRAST Axial images of the head were obtained without contrast. Coronal reformatted images were also obtained. This study was performed with techniques to keep radiation doses as low as reasonably achievable (ALARA). Individualized dose reduction techniques using automated exposure control or adjustment of mA and/or kV according to the patient's size were employed. There is generalized age-appropriate atrophy. Periventricular low-attenuation areas are seen consistent with mild chronic ischemic changes, stable. There is no evidence of intracranial hemorrhage or mass. There is no evidence of acute infarct. There is no evidence of shift of the midline structures. No skull abnormality is seen on the bone window images. There is near total opacification of the right maxillary sinus, worse. IMPRESSION: Atrophy and mild periventricular chronic ischemic changes, stable. Right maxillary sinusitis, worse. Reviewed, Interpreted and Dictated by Cesario Arango III, MD Transcribed by Ivy Johnson Authenticated by Cesario Arango III, MD on 08/03/2021 03:51:01 PM [facility]
== END ==
PROVIDERS: PCP Internal Medicine; Visit Provider Internal Medicine
DX: R51.9 Headache, unspecified (principal)
CPT/HCPCS: 70450

== ENCOUNTER 2021-08-28 08:42 | Inpatient (IN) | payer MEDICARE, SELFPAY ==
[2021-08-28] VITALS (19 sets, daily range): BP systolic 95–149; BP diastolic 51–95; PULSE 74–93; RESP 16–18; TEMP 36.5–37; O2SAT 85–97; BMI 24.7; BMI 26.2
--- NOTE | 2021-08-28 08:49 | HMH.EDGENADL ---
ED Disposition Clinical Impression: Closed left hip fracture Qualifiers: Encounter type: initial encounter Qualified Code(s): S72.002A - Fracture of unspecified part of neck of left femur, initial encounter for closed fracture Disposition: Admitted As Inpatient Condition on Discharge: Fair - Critical Care Critical Care Time: No Attestation: On 08/28/21, the high probability of a clinically significant, sudden or life threatening deterioration of the following system(s) required my full and direct attention, intervention and personal management. The time I documented below is in addition to time spent performing reported procedures but includes the following listed in this critical care notation. Medical Decision Making - Erik Inquiry Pt receiving controlled substance: Yes Erik was queried for this patient: Yes Risks and benefits of using a controlled substance: were not discussed with pt by me Vital Signs: 08/28/21 08:40 08/28/21 08:56 08/28/21 09:05 Temperature 97.9 F Temperature Source Oral Pulse Rate 76 79 Pulse Rate [Right Radial] 77 Respiratory Rate 16 18 18 Blood Pressure 130/71 140/79 Blood Pressure [Right Arm] 131/74 Blood Pressure Mean 100 106 Blood Pressure Mean [Right Arm] 93 Blood Pressure Source [Right Arm] Automatic Cuff Blood Pressure Position [Right Arm] Sitting 02 Sat by Pulse Oximetry 94 L 95 94 L Oxygen Delivery Method Nasal Cannula Oxygen Flow Rate (LPM) 08/28/21 09:16 08/28/21 09:26 08/28/21 09:55 Temperature Temperature Source Pulse Rate 83 81 87 Pulse Rate [Right Radial] Respiratory Rate 18 16 16 Blood Pressure 119/67 126/74 115/95 H Blood Pressure [Right Arm] Blood Pressure Mean 84 78 100 Blood Pressure Mean [Right Arm] Blood Pressure Source [Right Arm] Blood Pressure Position [Right Arm] 02 Sat by Pulse Oximetry 92 L 96 96 Oxygen Delivery Method Oxygen Flow Rate (LPM) 08/28/21 10:05 08/28/21 10:16 08/28/21 10:26 Temperature Temperature Source Pulse Rate 86 92 H 77 Pulse Rate [Right Radial] Respiratory Rate 16 Blood Pressure 131/65 134/64 135/74 Blood Pressure [Right Arm] Blood Pressure Mean 100 100 94 Blood Pressure Mean [Right Arm] Blood Pressure Source [Right Arm] Blood Pressure Position [Right Arm] 02 Sat by Pulse Oximetry 85 L 96 96 Oxygen Delivery Method Nasal Cannula Nasal Cannula Oxygen Flow Rate (LPM) 2 2 08/28/21 10:46 Temperature Temperature Source Pulse Rate 89 Pulse Rate [Right Radial] Respiratory Rate 16 Blood Pressure 133/85 Blood Pressure [Right Arm] Blood Pressure Mean 92 Blood Pressure Mean [Right Arm] Blood Pressure Source [Right Arm] Blood Pressure Position [Right Arm] 02 Sat by Pulse Oximetry 96 Oxygen Delivery Method Nasal Cannula Oxygen Flow Rate (LPM) 2 - Lab Data Lab Results 08/28/21 08:58: SARS-CoV-2 (PCR) Not detected, Influenza A Untype (PCR) Not detected, Influenza Type B (PCR) Not detected 08/28/21 09:18: WBC 6.1, RBC 4.36, Hgb 13.5, Hct 41.2, MCV 94.4, MCH 30.9, MCHC 32.7, RDW 12.8, Plt Count 277, MPV 8.0, Neut % (Auto) 78.9, Lymph % (Auto) 14.7, [place] % (Auto) 3.5, Eos % (Auto) 1.8, Baso % (Auto) 1.2, Neut # (Auto) 4.8, Lymph # (Auto) 0.9, [place] # (Auto) 0.2, Eos # (Auto) 0.1, Baso # (Auto) 0.1 08/28/21 09:18: Sodium 135 L, Potassium 2.8 L*, Chloride 104, Carbon Dioxide 28, Anion Gap 5.8, BUN 17, Creatinine 0.50 L, Estimated Creat Clear 43, Estimated GFR 118, Est GFR ( Amer) 143, Glucose 97, Calcium 8.0 L, Total Bilirubin 0.4, AST 28, ALT 12, Alkaline Phosphatase 58, Total Protein 5.6 L, Albumin 3.2 L, Globulin 2.4, Albumin/Globulin Ratio 1.3 Result diagrams: 08/28/21 09:18 08/28/21 09:18 Orders (Tests/Meds): ED MEDICATIONS Discontinued Medications Generic Name Dose Route Start Last Admin Trade Name Freq PRN Reason Stop Dose Admin Hydromorphone HCl 0.5 mg 08/28/21 09:31 08/28/21 09:33 Hydromorphone 2mg/Ml Syringe
--- NOTE | 2021-08-28 09:01 | XR_ITS ---
PROCEDURE INFORMATION: Exam: XR Chest Exam date and time: 08/28/2021 9:36 AM Age: 81 years old Clinical indication: Injury or trauma; Fall; Blunt trauma (contusions or hematomas); Injury date: 08/28/21; Additional info: Fall, hip pain- trauma chest xray TECHNIQUE: Imaging protocol: XR of the chest. Views: 1 view. COMPARISON: CR XR CHEST 2V 11/08/2020 10:32 PM FINDINGS: Lungs: Limited visualization of the left lung base, due in part to patient's known elevated left hemidiaphragm and diaphragmatic hernia. No focal consolidation on the right. Pleural spaces: Unremarkable. No pleural effusion. No pneumothorax. Heart/Mediastinum: Stable cardiomegaly. Bones/joints: Unremarkable. Other findings: Limited by patient rotation. IMPRESSION: 1. Limited by patient rotation. 2. Limited visualization of the left lung base, due in part to patient's known elevated left hemidiaphragm and diaphragmatic hernia. 3. No focal consolidation on the right.
--- NOTE | 2021-08-28 09:01 | XR_ITS ---
PROCEDURE INFORMATION: Exam: XR Left Hip Exam date and time: 08/28/2021 9:31 AM Age: 81 years old Clinical indication: Injury or trauma; Fall; Blunt trauma (contusions or hematomas); Left; Hip; Injury date: 08/28/21; Additional info: Fall, hip pain TECHNIQUE: Imaging protocol: XR Left hip. Views: 2 or 3 views hip with pelvis when performed. COMPARISON: CR XR PELVIS 1-2V 11/08/2020 10:32 PM FINDINGS: Bones/joints: Total right hip prosthesis. Minimally displaced subcapital fracture left hip. Soft tissues: Unremarkable. IMPRESSION: Minimally displaced subcapital fracture left hip.
--- NOTE | 2021-08-28 09:36 | PC.NURSE ---
Pt to Rad
[2021-08-28 09:59] LABS: Basophils # 0.1 K/mm3 (0-0.2); Basophils % 1.2 % (0.1-2.0); Eosinophils # 0.1 K/mm3 (0.0-0.4); Eosinophils % 1.8 % (0.1-12.0); Hematocrit 41.2 % (37.0-47.0); Hemoglobin 13.5 g/dL (12.2-16.2); Lymphocytes # 0.9 K/mm3 (0.7-4.5); Lymphocytes % 14.7 % (10-50); Mean Corpuscular HGB Conc 32.7 g/dL (31.8-35.4); Mean Corpuscular Hemoglobin 30.9 pg (27.0-31.2); Mean Corpuscular Volume 94.4 fl (81-99); Monocytes # 0.2 K/mm3 (0.1-1.0); Monocytes % 3.5 % (1.7-9.3); Neutrophils # 4.8 K/mm3 (1.8-7.8); Neutrophils % 78.9 % (37.0-80.0); Platelet Count 277 K/mm3 (142-424); Red Blood Count 4.36 M/mm3 (4.20-5.40); Red Cell Distribution Width 12.8 % (11.5-17.5); White Blood Count 6.1 K/mm3 (4.8-10.8)
[2021-08-28 10:04] LABS: Chloride 104 mmol/L (98-107); Sodium 135 mmol/L (136-145)
--- NOTE | 2021-08-28 10:04 | PC.NURSE ---
talking to Dr You ortho
[2021-08-28 10:07] LABS: Alanine Aminotransferase 12 U/L (12-78); Albumin Level 3.2 g/dl (3.5-5.0); Albumin/Globulin Ratio 1.3 (1.1-1.8); Alkaline Phosphatase 58 U/L (38-126); Anion Gap 5.8 mEq/L (5-15); Aspartate Amino Transferase 28 U/L (14-36); Bilirubin,Total 0.4 mg/dl (0.2-1.3); Blood Urea Nitrogen 17 mg/dl (7-17); Carbon Dioxide 28 mmol/L (22.0-30.0); Creatinine Clearance Estimated 43 mL/min (50-200); Estimated Glomerular Filt Rate 118 ml/min (>60); GFR (African American) 143 ML/MIN (>60); Globulin 2.4 g/dL (1.3-3.2); Glucose 97 mg/dl (74-100); Total Protein,Serum 5.6 g/dl (6.3-8.2)
[2021-08-28 10:14] LABS: Potassium 2.8 mmoL/L (3.5-5.1)
[2021-08-28 10:24] LABS: Coronavirus 19, PCR Not Detected (NotDetected); Influenza A, PCR Not Detected (NotDetected); Influenza B, PCR Not Detected (NotDetected)
--- NOTE | 2021-08-28 10:31 | PC.NURSE ---
receiving and processing supervisor called for admission
--- NOTE | 2021-08-28 10:33 | ECG_ITS ---
APPROVED REPORT Exam: Resting ECG HR:87 bpm ECG Measurements Heart Rate 87 AXES CO 260 P 47 QRSd 97 QRS 36 QT 363 T 56 QTc 408 Conclusion SINUS RHYTHM WITH FIRST DEGREE AV BLOCK INCOMPLETE RIGHT BUNDLE BRANCH BLOCK [90+ ms QRS DURATION, TERMINAL R IN V1/V2, 40+ ms S IN I/aVL/V4/V5/V6] MODERATE ST DEPRESSION [0.05+ mV ST DEPRESSION] ABNORMAL ECG UNCONFIRMED REPORT Electronically signed by : Jose Aponte MD 08/28/2021 21:30:42
--- NOTE | 2021-08-28 11:17 | PC.NURSE ---
REPORT CALLED TO FLOOR
--- NOTE | 2021-08-28 11:32 | HMH.HP ---
*Admission Date: 08/28/21 *Chief complaint: fall *History of present illness: this patient presented to the [facility] ed after trip type fall and brought in by ambulance for a left hip injury. She says that she was going to open a door and just went down landing on her left hip. Complains of pain in the lateral left hip with movement. She was unable to get up after the fall. She did not injure her head. She has had a previous right hip replacement. She is on Eliquis. She believes she is on this due to a previous blood clot many years ago. She has been on lifelong anticoagulation since her blood clot pt was found to have acute lt hip fx and was admitted for ortho consult and repair [facility] History I have reviewed the patient's past medical history: Yes Medical History: Reports:: Congestive Heart Failure, Chronic Obstructive Pulmonary Disease (COPD), Coronary Artery Disease, Deep Vein Thrombosis, Gastroesophageal Reflux Disease(GERD), Hypertension, MRSA, Osteoporosis, Seizures, Urinary Tract Infection Denies:: Cancer, Diabetes Mellitus Type 1, Diabetes Mellitus Type 2, Internal Pacemaker *Have you ever received a pneumonia vaccine?: Yes *Have you received a flu vaccine this season?: Yes Other Medical History: Reports: Arthritis, Osteoporosis, Thyroid Disease Laterality Cases: Right: Total Hip Replacement, Bilateral: Tonsillectomy Other Surgeries: Yes: No Previous Surgery, Colonoscopy, Colon Resection, Hernia Repair, Hysterectomy-Total, Thyroidectomy. No: Pacemaker Amputation: No Fractures: Yes (hip & femur) - *Social History Smoking Status: Never smoker Alcohol Intake: never Alcohol Intake Frequency:: other Substance Use Type: denies use *Occupational Status:: retired Housing: house Household Members: none *Travel in the last 8 weeks: None Family Hx:: Coronary Artery Disease, Anemia Review of Systems - Review of Systems Review of systems:: pertinent systems reviewed and negative unless documented below - Constitutional Denies fever(s) - Eyes Denies change in vision - ENT Denies sore throat - *Cardiovascular Denies chest pain - *Respiratory Denies cough - *Gastrointestinal Denies abdominal pain - *Genitourinary Denies blood in urine - *Musculoskeletal Reports joint pain, Reports limited joint movement - Integumentary/Breasts Denies rash - *Neurologic Denies seizure-like activity - Psychiatric Denies anxiety Meds Home Medications Medication Instructions Recorded Confirmed Type Gabapentin [Gabapentin 300mg Cap] 300 mg PO TID 03/28/17 08/28/21 History Losartan Potassium 25 mg PO DAILY 03/28/17 08/28/21 History Pantoprazole Sodium [Protonix 40mg 40 mg PO DAILY 03/28/17 08/28/21 History tablet] metOLazone [metOLazone 2.5mg 5 mg PO DAILY 03/28/17 08/28/21 History Tablet] Acetaminophen 500 mg PO DAILY 08/28/21 08/28/21 History Apixaban [Eliquis] 5 mg PO BID 08/28/21 08/28/21 History Aspirin [Aspirin 81mg chewable 81 mg PO DAILY 08/28/21 08/28/21 History tab] Cholecalciferol (Vitamin D3) 1,000 units PO BID 08/28/21 08/28/21 History [Vitamin D3 1,000 Unit Cap] Ferrous Sulfate 325 mg PO DAILY 08/28/21 08/28/21 History Glucosamine/Chondroitin/C/Jed 2,800 mg PO BID 08/28/21 08/28/21 History [Glucosamine Chondroitin Tab] Levothyroxine Sodium 200 mcg PO DAILYDM 08/28/21 08/28/21 History [Levothyroxine 200mcg (0.2mg) Tab] Multivit-Min/FA/Lycopen/Lutein 1 tab PO DAILY 08/28/21 08/28/21 History [Centrum Silver Tablet] Oxybutynin Chloride [Oxybutynin 10 mg PO DAILY 08/28/21 08/28/21 History Chloride ER] Potassium Chloride [Klor-con 20 20 meq PO BID 08/28/21 08/28/21 History mEq tablet] Propranolol HCl [Propranolol HCl 120 mg PO DAILY 08/28/21 08/28/21 History 120mg ER Capsule] Propranolol HCl [Propranolol HCl 120 mg PO DAILY 08/28/21 08/28/21 History 120mg ER Capsule] Sennosides/Docusate Sodium [Colace 1 tab PO BID 08/28/21 08/28/21 History 2-in-1 Tablet]
--- NOTE | 2021-08-28 11:43 | PC.NURSE ---
called and said that he wanted the patient to have a CT of the hip before going up to the floor.
--- NOTE | 2021-08-28 11:44 | CT_ITS ---
PROCEDURE INFORMATION: Exam: CT Left Lower Extremity Without Contrast, Hip Exam date and time: 08/28/2021 12:02 PM Age: 81 years old Clinical indication: Injury or trauma; Fall; Blunt trauma; Hip; Left; Injury date: 08/28/2021; Additional info: Hip fracture- left surgical planning TECHNIQUE: Imaging protocol: CT of the Left lower extremity without contrast was performed. Exam focused on the hip. Radiation optimization: All CT scans at this facility use at least one of these dose optimization techniques: automated exposure control; mA and/or kV adjustment per patient size (includes targeted exams where dose is matched to clinical indication); or iterative reconstruction. COMPARISON: CR XR HIP LT 2-3V W/PELVIS 08/28/2021 9:31 AM FINDINGS: Bones/joints: Subcapital fracture left femur, with mild angulation and displacement. Soft tissues: Normal. IMPRESSION: Subcapital fracture left femur, with mild angulation and displacement.
--- NOTE | 2021-08-28 11:45 | PC.NURSE ---
Radiology has been called about the CT hip for patient
--- NOTE | 2021-08-28 12:04 | PC.NURSE ---
Pt to rad
--- NOTE | 2021-08-28 12:04 | PC.NURSE ---
Daughter continues to set at bedside
--- NOTE | 2021-08-28 12:15 | PC.NURSE ---
Patientn back from CT
[2021-08-28 12:19] LABS: Microscopic, Urine URINE MICROSCOPIC (MICROSCOPIC)
--- NOTE | 2021-08-28 12:24 | PC.NURSE ---
pt taken to room on med surg floor
--- NOTE | 2021-08-28 12:25 | PC.NURSE ---
Pt arrived to the floor at this time.
--- NOTE | 2021-08-28 13:32 | P.CONPHA_ITS ---
[facility] Pharmacy VTE Monitoring - Patient Demographics Admission date: 08/28/21 Report Date: 08/28/21 Time: 13:32 Allergies/Adverse Reactions: Patient Allergies penicillin G Allergy (Unknown, Verified 07/12/21 13:54) RASH/SWELLING Penicillins Allergy (Unknown, Verified 07/12/21 13:54) RASH/SWELLING Height: 1.6 m Weight: 67.188 kg Patient Problems: Current Active Problems Closed left hip fracture (Acute) - VTE Risk Labs: VTE Related Lab Results Hgb 13.5 g/dL (12.2-16.2) 08/28/21 09:18 Hct 41.2 % (37.0-47.0) 08/28/21 09:18 Plt Count 277 K/mm3 (142-424) 08/28/21 09:18 BUN 17 mg/dl (7-17) 08/28/21 09:18 Creatinine 0.50 mg/dl (0.52-1.04) L 08/28/21 09:18 Estimated Creat Clear 43 mL/min (50-200) 08/28/21 09:18 Was VTE Risk Assessment Performed: No Clinical Trial Participant: No - Prophylaxis VTE Prophylaxis Ordered?: Yes Types of VTE Prophylaxis: TEDS Knee High Location of Applied Device: Bilateral Lower Extremeties
[2021-08-28 14:53] LABS: Appearance,Urine CLEAR (Clear); Bilirubin,Urine Negative (Negative); Blood, Urine Negative (Negative); Color,Urine YELLOW (Yellow); Glucose,Urine (UA) Negative (Negative); Ketones,Urine TRACE (Negative); Leukocyte Esterase,Urine Negative (Negative); Nitrate,Urine Negative (Negative); Protein,Urine Negative (Negative); Urobilinogen,Urine 0.2 EU/dl (0.2)
[2021-08-28 15:02] LABS: RBC,Urine Occasional #/hpf (0-3)
--- NOTE | 2021-08-28 16:11 | HMH.ORTHOCON ---
*Admission Date: 08/28/21 *Reason for consult:: left femoral neck fracture *History of present illness: 81-year-old female was evaluated in the emergency department today after falling from ground-level while trying to enter her house from her porch. She was unable to stand and bear weight. She was found by family who called an ambulance and she was transported to the emergency department. She denied head trauma, loss of consciousness. She says she had not become dizzy, just lost her footing and fell. She has history of COPD, is not on oxygen. She has a remote history of a blood clot for which she takes Eliquis. Her last dose of Eliquis was this morning. She sustained a right femoral neck fracture in 2014 and underwent total hip arthroplasty at that time. She was very active at that point, says she could nearly do cart wheels just prior to that time. This was performed by a reconstruction specialist in [place] but unfortunately, she dislocated that hip 5 weeks postoperatively and underwent closed reduction. She has not had issues with her right hip thereafter. Since that time, her COPD has worsened and she is less active overall. She says that she could previously walk to the barn approximately 1/8 mile away from her house 30 or 40 times a day without having to rest, but now she has to stop to rest a couple times just to make it to the barn. She attributes that to becoming short of breath when walking. Since her last hip fracture in 2014, she had developed a rectovaginal fistula which was treated at [facility] in [place]. This was complicated by MRSA infection postoperatively. More recently she fell, sustained a right distal radius fracture which was treated via closed means by Dr. Car locally. She subsequently underwent DEXA scan with T score of -2.5. She has history of lymphedema bilateral lower extremities but had not tolerated Unna wraps. Her swelling not caused ulceration or overlying skin changes. [facility] History Medical History: Reports:: Congestive Heart Failure, Chronic Obstructive Pulmonary Disease (COPD), Coronary Artery Disease, Deep Vein Thrombosis, Gastroesophageal Reflux Disease(GERD), Hypertension, MRSA, Osteoporosis, Seizures, Urinary Tract Infection Denies:: Cancer, Diabetes Mellitus Type 1, Diabetes Mellitus Type 2, Internal Pacemaker *Have you ever received a pneumonia vaccine?: Yes *Have you received a flu vaccine this season?: Yes Other Medical History: Reports: Arthritis, Osteoporosis, Thyroid Disease Laterality Cases: Right: Total Hip Replacement, Bilateral: Tonsillectomy Other Surgeries: Yes: No Previous Surgery, Colonoscopy, Colon Resection, Hernia Repair, Hysterectomy-Total, Thyroidectomy. No: Pacemaker Amputation: No Fractures: Yes (hip & femur) - *Social History Smoking Status: Never smoker Alcohol Intake: never Alcohol Intake Frequency:: other Substance Use Type: denies use *Occupational Status:: retired Housing: house Household Members: none *Travel in the last 8 weeks: Inside the [facility] Family Hx:: Coronary Artery Disease, Anemia Review of Systems - Constitutional Denies anorexia, Denies fatigue - Eyes Denies blind spots, Denies blurry vision - ENT Denies abnormal hearing, Denies change in voice - *Cardiovascular Reports shortness of breath with activity, Reports generalized swelling, Denies chest pain - *Respiratory Reports shortness of breath with activity, Denies change in phlegm color, Denies chest congestion, Denies coughing up blood, Denies pain on inspiration - *Gastrointestinal Denies abdominal pain, Denies belching, Denies bloating, Denies change in bowel habits - *Genitourinary Denies difficulty urinating, Denies pelvic pain, Denies urinary incontinence - *Musculoskeletal Reports joint pain, Reports deformity, Reports joint swelling, Reports limited joint movement Comments: Left hip pain - *Neurologic Denies abnormal walking, Denies abnormal movements, De
[2021-08-29] VITALS (7 sets, daily range): BP systolic 88–114; BP diastolic 51–55; PULSE 76–90; RESP 16–20; TEMP 36.6–37.1; O2SAT 90–95; BMI 26.2
--- NOTE | 2021-08-29 04:00 | PC.NURSE ---
pt with complaints of pain at 8 to 9, but rested well after tylenol and dilaudid administered, f/c to bsd with clear yellow urine noted, pt alert and oriented x4; BLE with cap refill and pedal pulses noted, [address] with sats 90%; lungs CTA, no other issues noted at this time.
[2021-08-29 06:50] LABS: Chloride 95 mmol/L (98-107)
[2021-08-29 06:51] LABS: Potassium 3.2 mmoL/L (3.5-5.1)
[2021-08-29 06:52] LABS: Sodium 130 mmol/L (136-145)
[2021-08-29 06:53] LABS: Blood Urea Nitrogen 15 mg/dl (7-17); Creatinine Clearance Estimated 45 mL/min (50-200); Estimated Glomerular Filt Rate 118 ml/min (>60); GFR (African American) 143 ML/MIN (>60)
[2021-08-29 06:54] LABS: Calcium 8.6 mg/dl (8.4-10.2); Glucose 113 mg/dl (74-100)
[2021-08-29 06:55] LABS: Anion Gap 6.2 mEq/L (5-15); Carbon Dioxide 32 mmol/L (22.0-30.0)
[2021-08-29 06:58] LABS: Basophils % 0.4 % (0.1-2.0); Eosinophils # 0.3 K/mm3 (0.0-0.4); Hematocrit 36.9 % (37.0-47.0); Lymphocytes % 13.3 % (10-50); Mean Corpuscular HGB Conc 32.6 g/dL (31.8-35.4); Mean Corpuscular Hemoglobin 30.7 pg (27.0-31.2); Mean Corpuscular Volume 94.2 fl (81-99); Mean Platelet Volume 7.7 fl (7.4-10.4); Monocytes # 0.4 K/mm3 (0.1-1.0); Monocytes % 5.1 % (1.7-9.3); Neutrophils # 5.5 K/mm3 (1.8-7.8); Neutrophils % 77.1 % (37.0-80.0); Platelet Count 215 K/mm3 (142-424); Red Blood Count 3.92 M/mm3 (4.20-5.40); Red Cell Distribution Width 12.8 % (11.5-17.5); White Blood Count 7.1 K/mm3 (4.8-10.8)
--- NOTE | 2021-08-29 07:12 | PC.NURSE ---
notified dr. clark of pt critical magnesium level 1.0 at this time.
--- NOTE | 2021-08-29 07:15 | PC.NURSE ---
lab called with magnesium level 1.0; called to dr. clark in ER, spoke with Aylin who stated will give to dr. Clark, reported to Ene chen rn ; oncoming RN.
--- NOTE | 2021-08-29 08:00 | CA_ITS ---
APPROVED REPORT EXAM: Comprehensive 2D, Doppler, and color-flow Echocardiogram It Generalist: Leidy Rubio RDCS Ht: 5 ft 3 in Wt: 140lbs BSA: 1.66 BP: 122/70 mmHg Indications: FX HIP,H/O CAD,CHF,COPD 2D Dimensions LVOT 1.79 cm (M/F) 1.5-2.5 M-Mode Dimensions RVDd 1.29 cm (0.9-2.6) LA Diam 3.58 cm (1.9-4.0) LVDd 3.92 cm (3.5-5.7) Ao Diam 3.17 cm (2.0-3.7) LVDs 3.14 cm (3.5-5.7) IVSd 0.66 cm (0.6-1.1) PWd 0.72 cm (0.6-1.1) EF (Teich) 41.40% FS 19.90% EDV (Teich) 66.70 mL ESV (Teich) 39.10 mL LV Diastology E Decel Time 277.00 (160-240 msec) E/A Ratio 0.8 Aortic Valve LVOT Max 147.00 (70-110 cm/s) LVOT VTI 29.99 cm AoV Peak Florin. 173.00 (50-130 cm/s) AO Peak GR. 12.00 mmHg AO Mean GR. 6.10 (<5 mmHg) AO VTI 34.75 (18-25 cm) RAOUL (VTI) 2.17 (2.5-4.5 cm2) Mitral Valve MV E Max Florin. 74.00 (40-130 cm/s) MV A Velocity 91.00 (40-130 cm/s) E/A Ratio 0.81 MV Decel. Time 277.00 (160-240 ms) MV PHT 81.00 ms Tricuspid Valve TR P. Velocity 313.00 cm/s RAP Estimate 10.00 mmHg RVSP 49.20 mmHg Left Ventricle Technically difficult study because of the patient factors and poor acoustic windows. Left atrium is mildly enlarged, ventricle is normal size, mild concentric left ventricular hypertrophy, estimated ejection fraction 55% with no regional wall motion abnormality, Doppler evidence of impaired LV relaxation seen. Right Ventricle Right atrium and right ventricle mildly enlarged with normal contractility. Aortic Valve Aortic valve is minimally thickened and calcified without aortic stenosis, there is mild aortic insufficiency. Mitral Valve Mitral valve leaflets are minimally thickened, there is mild mitral regurgitation. Tricuspid Valve Tricuspid valve grossly normal, there is mild tricuspid regurgitation, calculated right ventricular systolic pressure is 38 mmHg. Pulmonic Valve Pulmonic valve is poorly visualized. Great Vessels Aortic root normal size. Inferior vena cava is normal size with normal spectral collapse. Pericardium No significant pericardial effusion. Conclusion 1. Mild biatrial enlargement, normal left ventricular size, mild concentric left ventricular hypertrophy, estimated ejection fraction 55% with no regional wall motion abnormality, Doppler evidence of impaired LV relaxation seen, there is no tissue Doppler performed. 2. Mildly enlarged right ventricle with normal contractility. 3. Mild aortic, mitral and tricuspid regurgitation, calculated right ventricular systolic pressure 38 mmHg. 4. No significant pericardial effusion. 5. Inferior vena cava normal size with normal inspiratory collapse. Electronically signed by : Gerson Perez MD 08/29/2021 19:46:46
--- NOTE | 2021-08-29 08:23 | HMH.CNCARD ---
History of Present Illness Consult date: 08/29/21 Requesting physician: Anderson Lopez Consult reason: pre-op evaluation Chief complaint: surgical clearance Additional Medical History:: Hx of unprovoked dvt years ago, on COA with eliquis leaky valves HTN Chronic lymphedema in lower extremities copd History of present illness: 81 year old white female with past medical hx of unproved DVT, HTN, chronic bilateral lower extremity lymphedema, and COPD presented to ER yesterday with complaint of left hip pain after fall yesterday at home. reports was heading outside to feed her cats when she stumbled on concrete floor and fell landing on left hip. Denies hitting head. Xray in ED was positive for minimally displaced subcapital fracture of left hip. Patient was admitted for surgery consult. potassium in ER noted to be 2.8, this am 3.2. Creatinine is 0.50 Cardiology was asked to do pre-op clearance. patient usually sees Dr. Mendoza at . reports hx of leaky valves. Daughter and patient states she has good baseline capacity, lives alone, does all chores by self. patient denies hx of chest pain but states soa has increased over the past year which she attributes to COPD. Reports has to rest more with activity to catch her breath but still can perform most of ADLs with little to no problems. Patient denies any complaints at this time. [facility] History Medical History: Reports:: Congestive Heart Failure, Chronic Obstructive Pulmonary Disease (COPD), Coronary Artery Disease, Deep Vein Thrombosis, Gastroesophageal Reflux Disease(GERD), Hypertension, MRSA, Osteoporosis, Seizures, Urinary Tract Infection Denies:: Cancer, Diabetes Mellitus Type 1, Diabetes Mellitus Type 2, Internal Pacemaker *Have you ever received a pneumonia vaccine?: Yes *Have you received a flu vaccine this season?: Yes Other Medical History: Reports: Arthritis, Osteoporosis, Thyroid Disease Laterality Cases: Right: Total Hip Replacement, Bilateral: Tonsillectomy Other Surgeries: Yes: No Previous Surgery, Colonoscopy, Colon Resection, Hernia Repair, Hysterectomy-Total, Thyroidectomy. No: Pacemaker Amputation: No Fractures: Yes (hip & femur) - *Social History Smoking Status: Never smoker Alcohol Intake: never Alcohol Intake Frequency:: other Substance Use Type: denies use *Occupational Status:: retired Housing: house Household Members: none *Travel in the last 8 weeks: None Family Hx:: Coronary Artery Disease, Anemia Meds Home Medications Medication Instructions Recorded Confirmed Type Gabapentin [Gabapentin 300mg Cap] 300 mg PO DIRECTED 03/28/17 08/29/21 History Losartan Potassium 12.5 mg PO DAILY 03/28/17 08/29/21 History Pantoprazole Sodium [Protonix 40mg 40 mg PO DAILY 03/28/17 08/28/21 History tablet] metOLazone [metOLazone 2.5mg 5 mg PO DAILY 03/28/17 08/28/21 History Tablet] Acetaminophen 500 mg PO DAILY 08/28/21 08/28/21 History Apixaban [Eliquis] 5 mg PO BID 08/28/21 08/28/21 History Aspirin [Aspirin 81mg chewable 81 mg PO DAILY 08/28/21 08/28/21 History tab] Cholecalciferol (Vitamin D3) 1,000 units PO BID 08/28/21 08/28/21 History [Vitamin D3 1,000 Unit Cap] Ferrous Sulfate 325 mg PO DAILY 08/28/21 08/28/21 History Glucosamine/Chondroitin/C/Jed 2 each PO BID 08/28/21 08/29/21 History [Glucosamine Chondroitin Tab] Levothyroxine Sodium 200 mcg PO DAILYDM 08/28/21 08/28/21 History [Levothyroxine 200mcg (0.2mg) Tab] Multivit-Min/FA/Lycopen/Lutein 1 tab PO DAILY 08/28/21 08/28/21 History [Centrum Silver Tablet] Oxybutynin Chloride [Oxybutynin 10 mg PO DAILY 08/28/21 08/28/21 History Chloride ER] Potassium Chloride [Klor-con 20 20 meq PO BID 08/28/21 08/28/21 History mEq tablet] Propranolol HCl [Propranolol HCl 120 mg PO DAILY 08/28/21 08/28/21 History 120mg ER Capsule] Sennosides/Docusate Sodium [Colace 1 tab PO BID 08/28/21 08/28/21 History 2-in-1 Tablet] Spironolactone 50 mg PO BID 08/28/21 08/28/21
--- NOTE | 2021-08-29 09:50 | SW/DCPLANNER ---
Addendum entered by Luciana [place] 09/01/21 10:01: This patient has been approved per [facility] for admission. Patient is not medically stable for discharge at this time but I will continue to follow up with MD. Patient will require a COVID swab prior to discharge. Addendum entered by Luciana [place] 08/31/21 15:47: Per [facility] this patient will require a COVID swab prior to discharge. Addendum entered by [facility] 08/31/21 12:49: Precert has been started per [facility] sin/ L[facility] Raym[facility]. Original Note: Patient/family are interested in placement at [facility] once medically stable to discharge from [facility]. Patient will not have surgery till tomorrow but I will fax patient information to [facility] sin/ L[facility] Raymundo today. I will continue to follow up with patient/family until medically stable for discharge.
--- NOTE | 2021-08-29 10:01 | HMH.ACPN2 ---
Internal Medicine - PN: Subj *Date: 08/29/21 *Time: 08:30 Interval history: pt states she is comfortable as she can be Exam Vital signs and Labs for Last 24 Hours: Temp Pulse Resp BP Pulse Ox 98.5 F 76 20 106/55 L 91 L 08/29/21 08:00 08/29/21 08:00 08/29/21 08:00 08/29/21 08:00 08/29/21 08:00 Laboratory Results - last 24 hr 08/28/21 08:58: SARS-CoV-2 (PCR) Not detected, Influenza A Untype (PCR) Not detected, Influenza Type B (PCR) Not detected 08/28/21 09:18: WBC 6.1, RBC 4.36, Hgb 13.5, Hct 41.2, MCV 94.4, MCH 30.9, MCHC 32.7, RDW 12.8, Plt Count 277, MPV 8.0, Neut % (Auto) 78.9, Lymph % (Auto) 14.7, [place] % (Auto) 3.5, Eos % (Auto) 1.8, Baso % (Auto) 1.2, Neut # (Auto) 4.8, Lymph # (Auto) 0.9, [place] # (Auto) 0.2, Eos # (Auto) 0.1, Baso # (Auto) 0.1 08/28/21 09:18: Sodium 135 L, Potassium 2.8 L*, Chloride 104, Carbon Dioxide 28, Anion Gap 5.8, BUN 17, Creatinine 0.50 L, Estimated Creat Clear 43, Estimated GFR 118, Est GFR ( Amer) 143, Glucose 97, Calcium 8.0 L, Total Bilirubin 0.4, AST 28, ALT 12, Alkaline Phosphatase 58, Total Protein 5.6 L, Albumin 3.2 L, Globulin 2.4, Albumin/Globulin Ratio 1.3 08/28/21 11:40: Urine Color Yellow, Urine Appearance Clear, Urine pH 7.0, Ur Specific [place] 1.020, Urine Protein Negative, Urine Glucose (UA) Negative, Urine Ketones Trace, Urine Blood Negative, Urine Nitrate Negative, Urine Bilirubin Negative, Urine Urobilinogen 0.2, Ur Leukocyte Esterase Negative, Urine RBC Occasional, Urine WBC None, Ur Squamous Epith Cells None, Urine Bacteria None 08/29/21 06:15: WBC 7.1, RBC 3.92 L, Hgb 12.0 L D, Hct 36.9 L, MCV 94.2, MCH 30.7, MCHC 32.6, RDW 12.8, Plt Count 215, MPV 7.7, Neut % (Auto) 77.1, Lymph % (Auto) 13.3, [place] % (Auto) 5.1, Eos % (Auto) 4.0, Baso % (Auto) 0.4, Neut # (Auto) 5.5, Lymph # (Auto) 1.0, [place] # (Auto) 0.4, Eos # (Auto) 0.3, Baso # (Auto) 0.0 08/29/21 06:15: Sodium 130 L, Potassium 3.2 L, Chloride 95 L, Carbon Dioxide 32 H, Anion Gap 6.2, BUN 15, Creatinine 0.50 L, Estimated Creat Clear 45, Estimated GFR 118, Est GFR ( Amer) 143, Glucose 113 H, Calcium 8.6, Magnesium 1.0 L I & O for Last 24 hours: Intake & Output 08/26/21 08/27/21 08/28/21 08/29/21 11:59 11:59 11:59 11:59 Intake Total 1060 / 1060 Output Total 800 / 800 Balance 260 / 260 Weight 140 lb 148 lb 1.987 oz - Constitutional no acute distress - *Routine HEENT Exam Head: Present: normocephalic Eye: Present: PERRL ENT: Present: mucous membranes moist - *Routine Neck Exam Present: supple. Absent: lymphadenopathy - *Routine Respiratory Exam Present: CTA bilaterally - *Routine Cardiovascular Exam Present: RRR - *Routine Abdominal Exam Present: soft, normoactive bowel sounds. Absent: tenderness - *Routine Extremities Exam Present: normal capillary refill - *Routine Skin Exam Present: warm. Absent: rash - *Routine Neurological Exam Present: alert, oriented X3 Assessment and Plan (1) Hypothyroidism (acquired) Status: Acute Category: Medical Code(s): E03.9 - Hypothyroidism, unspecified (2) Closed left hip fracture Status: Acute Qualifiers: Encounter type: initial encounter Qualified Code(s): S72.002A - Fracture of unspecified part of neck of left femur, initial encounter for closed fracture Category: Medical Code(s): S72.002A - Fracture of unspecified part of neck of left femur, initial encounter for closed fracture (3) Hypokalemia Status: Acute Category: Medical Code(s): E87.6 - Hypokalemia (4) Arteriosclerotic heart disease (ASHD) Status: Acute Category: Medical Code(s): I25.10 - Atherosclerotic heart disease of [place] coronary artery without angina pectoris - Assessment and plan all Dx Assessment and Plan for all problems:: rounded with dr clark all orders per dr clark ortho consult cardiology consult echo surgery tomorrow pt on eliquis and last dose yesterday at 6 am
--- NOTE | 2021-08-29 10:19 | HMH.PHAINT ---
MEDICATION RECONCILIATION COMPLETED ON PATIENT USING EXTERNAL FILL HISTORY FROM PHARMACY AND PATIENT INTERVIEW. -NATHAN HONG, [place]
--- NOTE | 2021-08-29 10:55 | HMH.ORTHPN ---
Subjective Date: 08/29/21 Time: 09:15 Principal diagnosis: Left femoral neck fracture Interval history: Patient is an 81-year-old female admitted to the acute inpatient service yesterday after sustaining a fall at home. Evaluation in the [facility] emergency department demonstrated a left femoral neck fracture. Orthopedics was consulted, and the patient is provisionally scheduled to undergo a left hip hemiarthroplasty performed by Dr. You tomorrow 08/30/2021. This morning she is lying comfortably in bed and her daughter is present at the bedside. She continues to report left hip pain but states that it is well controlled with as needed pain medication and rest. She denies any episodes of vomiting but reports intermittent nausea. She states that she does not have much of an appetite but has been drinking well. She denies any distal tingling/numbness. She is on chronic anticoagulation with Eliquis, her last dose was yesterday morning, 08/28/2021. She denies any other symptoms or concerns at this time. PN: Obj Ex Vital signs: Temp Pulse Resp BP Pulse Ox 98.5 F 76 20 106/55 L 91 L 08/29/21 08:00 08/29/21 08:00 08/29/21 08:00 08/29/21 08:00 08/29/21 08:00 - Constitutional no acute distress, cooperative - Routine HEENT Exam Head: Present: normocephalic, atraumatic Eye: Present: EOMI, PERRL ENT: Present: mucous membranes moist - Routine Neck Exam Present: supple, full ROM, trachea midline. Absent: JVD, lymphadenopathy - Routine Respiratory Exam Absent: accessory muscle use, respiratory distress Comments: Symmetric chest movement, able to speak in complete sentences - Routine Cardiovascular Exam Present: RRR Comments: Normal peripheral pulses - Routine Abdominal Exam Present: soft. Absent: tenderness - Routine Extremities Exam Comments: Upon examination of the lower extremities: The left leg is shortened and externally rotated. The skin is intact. No lacerations, abrasions, ulcerations, or erythema noted. There is bilateral diffuse swelling of the lower extremities. The left hip and proximal femur are tender to palpation. Attempted movements of the left hip are painful. Thigh and calf are soft and nontender; Homans' sign is negative. No clinical evidence of DVT noted. Posterior tibial pulse 1+; capillary refill is brisk. Sensation to light touch is grossly intact throughout. Patient is actively mobilizing the foot, ankle, and toes. - Routine Skin Exam Present: intact, warm, normal turgor. Absent: cyanosis, erythema, lesions, jaundice - Routine Neurological Exam Present: alert, oriented X3, CN II-XII intact, moving all extremities, normal tone, normal speech. Absent: sensory deficit, motor deficit, altered mental status - Routine Psychiatric Exam Present: normal affect, cooperative - Urinary Catheter Management Damian Cath placed during this visit: no Urethral indwelling: Yes Progress Note: A&P (1) Hypothyroidism (acquired) Status: Acute (2) Closed left hip fracture Status: Acute (3) Hypokalemia Status: Acute (4) Arteriosclerotic heart disease (ASHD) Status: Acute Assessment and Plan for All Diagnoses:: I have discussed the clinical findings and diagnostic imaging with the patient and her daughter. We have again discussed all management options including surgical as well as nonsurgical and the associated risks/benefits of each. I have given her printed copies of her x-rays as well as postoperative x-rays of a left hip hemiarthroplasty. We have recommended surgical intervention for her left femoral neck fracture in the form of a left hemiarthroplasty with cemented stem; further surgical recommendations per Dr. You. The patient and her daughter are agreeable to proceed with a left hip hemiarthroplasty and have asked appropriate questions; verbal consent as well as written consent have been obtained. Cardiology note reviewed; patient has
--- NOTE | 2021-08-29 15:55 | PC.NURSE ---
PT IS RESTING IN BED. MEDICATED PER MAR FOR DISCOMFORT. ALERT AND ORIENTED X4. EATING AND DRINKING FAIR. PT REQUIRES ASSISTANCE WITH REPOSITIONING. LUNG SOUNDS CLEAR. ABDOMEN SOFT/NON TENDER WITH ACTIVE BOWEL SOUNDS. 02 SATURATION HAS MAINTAINED 90-92% ON 2 L NC. WILL CONTINUE TO MONITOR.
[2021-08-30] VITALS (22 sets, daily range): BP systolic 102–151; BP diastolic 48–79; PULSE 67–90; RESP 14–18; TEMP 36.4–37.2; O2SAT 84–97; BMI 26.5
--- NOTE | 2021-08-30 05:46 | PC.NURSE ---
Pt a + o x4. Pt has c/o pain in left hip 1x t/o shift and had been administered PRN pain medication per MAR, pt states favorable results. Pt continue to be on 2 L nc, tolerating well with sats >90%. Call light within reach.
[2021-08-30 06:58] LABS: Basophils % 0.5 % (0.1-2.0); Eosinophils # 0.3 K/mm3 (0.0-0.4); Eosinophils % 4.1 % (0.1-12.0); Hematocrit 36.1 % (37.0-47.0); Hemoglobin 12.1 g/dL (12.2-16.2); Lymphocytes % 13.1 % (10-50); Mean Corpuscular HGB Conc 33.5 g/dL (31.8-35.4); Mean Corpuscular Hemoglobin 31.2 pg (27.0-31.2); Mean Corpuscular Volume 93.2 fl (81-99); Mean Platelet Volume 7.8 fl (7.4-10.4); Monocytes # 0.4 K/mm3 (0.1-1.0); Neutrophils # 5.8 K/mm3 (1.8-7.8); Neutrophils % 77.2 % (37.0-80.0); Platelet Count 210 K/mm3 (142-424); Red Blood Count 3.87 M/mm3 (4.20-5.40); Red Cell Distribution Width 12.9 % (11.5-17.5); White Blood Count 7.5 K/mm3 (4.8-10.8)
[2021-08-30 07:09] LABS: Chloride 93 mmol/L (98-107); Sodium 130 mmol/L (136-145)
[2021-08-30 07:12] LABS: Anion Gap 5.9 mEq/L (5-15); Blood Urea Nitrogen 11 mg/dl (7-17); Calcium 8.4 mg/dl (8.4-10.2); Carbon Dioxide 34 mmol/L (22.0-30.0); Creatinine Clearance Estimated 46 mL/min (50-200); Estimated Glomerular Filt Rate 118 ml/min (>60); GFR (African American) 143 ML/MIN (>60); Glucose 113 mg/dl (74-100)
[2021-08-30 07:15] LABS: Potassium 2.9 mmoL/L (3.5-5.1)
--- NOTE | 2021-08-30 09:10 | HMH.ORTHPN ---
Subjective Date: 08/30/21 Time: 08:30 Principal diagnosis: Left femoral neck fracture Interval history: Patient is an 81-year-old female admitted to the acute inpatient service 08/28/2021 after sustaining a fall at home. Evaluation in the [facility] emergency department demonstrated a left femoral neck fracture. Orthopedics was consulted, and the patient is scheduled to undergo a left hip hemiarthroplasty performed by Dr. You today 08/30/2021. This morning she is lying comfortably in bed and her son-in-law is present at the bedside. She continues to report left hip pain but states that it is well controlled with as needed pain medication and rest. She denies any episodes of vomiting, nausea, chest pain, palpitations, shortness of breath, or distal tingling/numbness. She is on chronic anticoagulation with Eliquis, her last dose was the morning of 08/28/2021. She has not had anything to eat or drink since yesterday evening. She denies any other symptoms or concerns at this time. PN: Obj Ex Vital signs: Temp Pulse Resp BP Pulse Ox 97.9 F 76 16 107/54 L 92 L 08/30/21 08:00 08/30/21 08:00 08/30/21 08:00 08/30/21 08:00 08/30/21 08:00 - Constitutional no acute distress, cooperative - Routine HEENT Exam Head: Present: normocephalic, atraumatic Eye: Present: EOMI, PERRL ENT: Present: mucous membranes moist - Routine Neck Exam Present: supple, full ROM, trachea midline. Absent: JVD, lymphadenopathy - Routine Respiratory Exam Absent: accessory muscle use, respiratory distress Comments: Symmetric chest movement, able to speak in complete sentences - Routine Cardiovascular Exam Present: RRR Comments: Normal peripheral pulses - Routine Abdominal Exam Present: soft. Absent: tenderness - Routine Extremities Exam Comments: Upon examination of the lower extremities: The left leg is shortened and externally rotated. The skin is intact. No lacerations, abrasions, ulcerations, or erythema noted. There is bilateral diffuse swelling of the lower extremities. The left hip and proximal femur are tender to palpation. Attempted movements of the left hip are painful. Thigh and calf are soft and nontender; Homans' sign is negative. No clinical evidence of DVT noted. Posterior tibial pulse 1+; capillary refill is brisk. Sensation to light touch is grossly intact throughout. Patient is actively mobilizing the foot, ankle, and toes. - Routine Skin Exam Present: intact, warm, normal turgor. Absent: cyanosis, erythema, lesions, jaundice - Routine Neurological Exam Present: alert, oriented X3, CN II-XII intact, moving all extremities, normal tone, normal speech. Absent: sensory deficit, motor deficit, altered mental status - Routine Psychiatric Exam Present: normal affect, cooperative, good judgment - Urinary Catheter Management Damian Cath placed during this visit: no Urethral indwelling: Yes Progress Note: A&P (1) Pre-operative cardiovascular examination Status: Acute (2) Closed left hip fracture Status: Acute (3) Hypokalemia Status: Acute Assessment and Plan for All Diagnoses:: I have discussed the clinical findings and diagnostic imaging with the patient and her son-in-law. We have again discussed all management options including surgical as well as nonsurgical and the associated risks/benefits of each. We have recommended surgical intervention for her left femoral neck fracture in the form of a left hemiarthroplasty with cemented stem; further surgical recommendations per Dr. You. The patient and her son-in-law are agreeable to proceed with a left hip hemiarthroplasty and have asked appropriate questions; verbal consent as well as written consent have been obtained. Case management team coordinating discharge planning. Continue medical management as per Dr. Loepz. - Cardiology note reviewed; patient has been cleared for surgery with recommendation to bridge anticoagul
--- NOTE | 2021-08-30 09:27 | P.PN_ITS ---
Internal Medicine - PN: Subj *Date: 08/30/21 *Time: 09:41 Interval history: 81-year-old female patient resting in bed quietly she reports pain is well controlled. She is scheduled to go down for left hip surgery this afternoon. Potassium 2.9 and we will replenish Exam Vital signs and Labs for Last 24 Hours: Temp Pulse Resp BP Pulse Ox 97.9 F 76 16 107/54 L 92 L 08/30/21 08:00 08/30/21 08:00 08/30/21 08:00 08/30/21 08:00 08/30/21 08:00 Laboratory Results - last 24 hr 08/30/21 05:55: WBC 7.5, RBC 3.87 L, Hgb 12.1 L, Hct 36.1 L, MCV 93.2, MCH 31.2, MCHC 33.5, RDW 12.9, Plt Count 210, MPV 7.8, Neut % (Auto) 77.2, Lymph % (Auto) 13.1, [place] % (Auto) 5.0, Eos % (Auto) 4.1, Baso % (Auto) 0.5, Neut # (Auto) 5.8, Lymph # (Auto) 1.0, [place] # (Auto) 0.4, Eos # (Auto) 0.3, Baso # (Auto) 0.0 08/30/21 05:55: Sodium 130 L, Potassium 2.9 L*, Chloride 93 L, Carbon Dioxide 34 H, Anion Gap 5.9, BUN 11 D, Creatinine 0.50 L, Estimated Creat Clear 46, Estimated GFR 118, Est GFR ( Amer) 143, Glucose 113 H, Calcium 8.4 I & O for Last 24 hours: Intake & Output 08/27/21 08/28/21 08/29/21 08/30/21 23:59 23:59 23:59 23:59 Intake Total 240 / 240 1741 / 1741 561 / 561 Output Total 500 / 800 1550 / 2070 1060 / 1060 Balance -260 / -560 191 / -329 -499 / -499 Weight 148 lb 2 oz 148 lb 1.987 oz 149 lb 14.4 oz - Constitutional no acute distress - *Routine HEENT Exam Head: Present: normocephalic Eye: Present: EOMI ENT: Present: mucous membranes moist - *Routine Neck Exam Present: trachea midline. Absent: tracheal deviation - *Routine Respiratory Exam Present: CTA bilaterally. Absent: accessory muscle use - *Routine Cardiovascular Exam Present: RRR - *Routine Abdominal Exam Present: soft, normoactive bowel sounds. Absent: tenderness, firm - *Routine Extremities Exam Present: edema, pulses intact. Absent: cyanosis, clubbing, full ROM, pallor - *Routine Skin Exam Present: intact, dry. Absent: cyanosis, erythema - *Routine Neurological Exam Present: alert, oriented X3. Absent: motor deficit - Routine Psychiatric Exam Present: normal affect, normal thought process. Absent: tactile hallucinations Assessment and Plan (1) Pre-operative cardiovascular examination Status: Acute Category: Medical Code(s): Z01.810 - Encounter for preproced ural cardiovascular examination (2) Closed left hip fracture Status: Acute Qualifiers: Encounter type: initial encounter Qualified Code(s): S72.002A - Fracture of unspecified part of neck of left femur, initial encounter for closed fracture Category: Medical Code(s): S72.002A - Fracture of unspecified part of neck of left femur, initial encounter for closed fracture (3) Hypokalemia Status: Acute Category: Medical Code(s): E87.6 - Hypokalemia - Assessment and plan all Dx Assessment and Plan for all problems:: Rounded with Dr. Lopez, all orders per Dr. Lopez: 1. To OR today for left hip surgery 2. Replenish potassium
--- NOTE | 2021-08-30 09:31 | PC.NURSE ---
0824 notified Dc Hawthorne face to face of pt potassium of 2.9
--- NOTE | 2021-08-30 11:44 | HMH.ORTHPN ---
Subjective Date: 08/30/21 Time: 11:44 Principal diagnosis: Left femoral neck fracture Interval history: Resting comfortably. No complaints overnight. She was hypokalemic this morning and has had potassium replaced. She is at bedside with her daughter and son-in-law. PN: Obj Ex Vital signs: Temp Pulse Resp BP Pulse Ox 97.9 F 76 16 107/54 L 92 L 08/30/21 08:00 08/30/21 08:00 08/30/21 08:00 08/30/21 08:00 08/30/21 08:00 - Constitutional no acute distress - Routine HEENT Exam Head: Present: normocephalic, atraumatic Eye: Present: EOMI ENT: Present: sinus tenderness - Routine Neck Exam Present: supple - Routine Chest/Breast/Axilla Exam Chest wall: Absent: tenderness - Routine Respiratory Exam Present: CTA bilaterally. Absent: accessory muscle use, diminished air movement - Routine Cardiovascular Exam Present: RRR - Routine Abdominal Exam Present: soft. Absent: distended - Routine Extremities Exam Present: edema - Detailed Lower Extremity Exam Hip: Left shortening of the leg (Left lower extremity shortened, baseline lymphedema. Palpable DP/PT pulse. Sensation intact to PT/SP/tibial/sural/saphenous nerve distribution. Grossly intact EHL, FHL, tibialis anterior, gastrocsoleus motor function.) - Urinary Catheter Management Damian Cath placed during this visit: no Urethral indwelling: Yes Progress Note: A&P (1) Pre-operative cardiovascular examination Status: Acute (2) Closed left hip fracture Status: Acute (3) Hypokalemia Status: Acute Assessment and Plan for All Diagnoses:: 81-year-old female with left femoral neck fracture. I had another discussion with her and her family regarding further management. In order to allow her early mobilization, plan for arthroplasty. We discussed total hip arthroplasty versus hip hemiarthroplasty. Given that her COPD limits her ambulation and she has no antecedent groin pain and no significant arthritic changes on imaging, she wishes to proceed with left hip hemiarthroplasty. We discussed press-fit stem versus cemented stem. We discussed similar long-term function, lower risk of periprosthetic fracture with cemented stem with slightly higher perioperative complications. She wished to proceed with cemented hip hemiarthroplasty. Plan for left hip hemiarthroplasty with cemented stem. We discussed the risk and benefits of surgery. Risks included but were not limited to pain, bleeding, infection, damage to adjacent structures, leg length asymmetry, dislocation, periprosthetic fracture, need for further surgery, wound healing complications, loss of limb, . Patient expressed verbal consent and written consent was obtained for the above procedure.
[2021-08-30 11:59] LABS: Potassium 3.5 mmoL/L (3.5-5.1)
--- NOTE | 2021-08-30 14:09 | XR_ITS ---
FINAL REPORT CLINICAL HISTORY: Five views done portable in O.R. Left hip arthroplasty. COMPARISON: 08/28/2021 FINDINGS: 5 views of the left hip were obtained portable in the operating room. There are postoperative changes from left hip arthroplasty. There is soft tissue air on the left. IMPRESSION: Left hip arthroplasty. Reviewed, Interpreted and Dictated by Cesario Arango III, MD Transcribed by Miguel Cha Authenticated and [facility]
--- NOTE | 2021-08-30 15:34 | XR_ITS ---
FINAL REPORT CLINICAL HISTORY: s/p left hip panda in PACU COMPARISON: 1.5 hours prior FINDINGS: LEFT HIP: Two views of the left hip demonstrate postoperative change of left hip arthroplasty. There is soft tissue air noted. There is postoperative change of right hip arthroplasty. There is a presumed bladder catheter. IMPRESSION: Postoperative changes. Reviewed, Interpreted and Dictated by Cesario Arango III, MD Transcribed by Malorie Ochoa Authenticated and . [facility]
--- NOTE | 2021-08-30 15:50 | P.PN_ITS ---
[facility] Anesthesia Checklist - Patient Identification Patient Identification: Arm Band, Family - Structural Data Admitted From: Inpatient Planned Operative Procedure/s: Left Hip Hemiarthroplasty Consent for Planned Operative Procedure(s) Verified: Yes Verified Documents: Surgical Consent, History and Physical - NPO Status Verified Time NPO: 00:00 - Additional verifications Anesthesia Reactions: No Hx Blood Transfusions: No - Airway Assessment C-Spine Mobility Assessed: Yes (mp2) TMJ Mobility Assessed: Yes Dentition: Poor Dentition - Neurological Assessment Level of Consciousness: Awake, Alert - Anesthesia Plan Anesthesia Risk discussed: Yes Anesthesia Plan: Verified ASA Class: III Anesthesia Type: General [facility] History I have reviewed the patient's past medical history: Yes Medical History: Reports:: Congestive Heart Failure, Chronic Obstructive Pulmonary Disease (COPD), Coronary Artery Disease, Deep Vein Thrombosis, Gastroesophageal Reflux Disease(GERD), Hypertension, MRSA, Osteoporosis, Seizures, Urinary Tract Infection Denies:: Cancer, Diabetes Mellitus Type 1, Diabetes Mellitus Type 2, Internal Pacemaker *Have you ever received a pneumonia vaccine?: Yes *Have you received a flu vaccine this season?: Yes Other Medical History: Reports: Arthritis, Osteoporosis, Thyroid Disease Anesthesia experience/problems:: nac Laterality Cases: Right: Total Hip Replacement, Bilateral: Tonsillectomy Other Surgeries: Yes: Colonoscopy, Colon Resection, Hernia Repair, Hysterectomy- Total, Thyroidectomy. No: Pacemaker Amputation: No Fractures: Yes (hip & femur) - *Social History Smoking Status: Never smoker Alcohol Intake: never Alcohol Intake Frequency:: other Substance Use Type: denies use *Occupational Status:: retired Housing: house Household Members: none *Travel in the last 8 weeks: None Family Hx:: Coronary Artery Disease, Anemia
--- NOTE | 2021-08-30 15:51 | P.PN_ITS ---
[facility] Anesthesia Record Part I Intake, IV Amount: 900 Estimated blood loss (mL): 150 Urine output (mL): 900 Blood Pressure: 144/74 SaO2: 94 Pulse Rate: 87 Respiratory Rate: 16 Temperature: 99 F Patient is:: Drowsy, Nasal O2, Stable Stable to PACU at:: 15:45
--- NOTE | 2021-08-30 15:54 | HMH.OPNOTE ---
Date of procedure: 08/30/21 Pre-op Diagnosis:: left femoral neck fracture Post-op Diagnosis:: same Procedure performed:: [id number]: open treatment left femoral neck fracture with left hip hemiarthroplasty Surgeon:: Fred You JR, MD [employer] Support Associate(s):: Inga Cabello PA-C [employer] OPERATOR:: Santy Barragan Anesthesia: GETA Estimated blood loss (mL): 200 Operative findings:: Grossly symmetric leg lengths noted. Final component stable to flexion past 90 degrees, internal rotation greater than 60 degrees with hip flexed, sleeping position, shuck test with appropriate knee flexion with hip extended. Operative note:: 81-year-old female with left femoral neck fracture as a result of a ground-level fall. She is on Eliquis at baseline secondary to history of DVT. She had a history of MRSA infection following bowel surgery years ago. I had a discussion with her and her family regarding further management. Their main goals were for early ambulation. I counseled them that arthroplasty would be the best option. We discussed total hip arthroplasty versus hemiarthroplasty. Her mobility is limited by her COPD. She had no arthritic changes on x-ray and had no antecedent groin pain and as such, she preferred left hip hemiarthroplasty. We discussed press-fit versus cemented stem. I counseled her and her family regarding the relative benefits of slightly higher perioperative complication with cemented stem versus low risk of periprosthetic fracture and better early function with cemented stem, similar senior living outcomes. She and her family preferred cemented stem. We planned for left hip hemiarthroplasty with cemented stem. She was amenable with the plan. We discussed the risk and benefits of surgery. Risks included but were not limited to pain, bleeding, infection, damage to adjacent structures, need for further surgery, leg length asymmetry, periprosthetic fracture, dislocation, wound healing complications, loss of limb, . Patient expressed verbal consent and written consent was obtained for the above procedure. Patient was identified in preoperative holding. Operative site was marked in indelible ink. History, physical, consent were reviewed and updated. Patient was surrendered to the anesthesia team, taken to the operative suite. Anesthesia was induced. Patient was then placed in the lateral decubitus position on a well-padded operative table. All bony prominences were padded and an axillary roll was placed. The operative extremity was prepped and draped in the usual sterile fashion. The operative team donned sterile gowns and gloves and a timeout was called. All in attendance agreed regarding the patient's identity, procedure, operative site. Weight-based dose of vancomycin was given prior to incision. TXA was given at time of incision as well as upon closing. A skin maker was then used to rohit all bony prominences. Skin incision was then carried out extending from the greater trochanter in a curvilinear fashion posteriorly across the buttocks. I incised the skin with a scalpel, then using a Bovie dissected through tissues. The fascia rae was incised utilizing Metzenbaum scissors. This was taken down to the bursa, which was removed utilizing a rongeur. Utilizing a periosteal elevator as well as the sponge, the fat was then freed from the short external rotators of the left hip after these were placed and stretched. The sciatic nerve was protected. Bovie was used to remove the short external rotators from the greater trochanter, which revealed the joint capsule. His were tagged for later repair. The capsule was cleared and incised utilizing a T-shape incision. A fracture hematoma was noted upon entering the joint capsule as well as the femoral neck fracture. A cork screw was then used to remove the fractured femoral head, which was given to the psychiatric tech which was sized on the back table. All bony remnants were then removed from the
[2021-08-31] VITALS (7 sets, daily range): BP systolic 90–134; BP diastolic 41–68; PULSE 78–92; RESP 16–17; TEMP 36.5–37.3; O2SAT 92–97; BMI 27.7
[2021-08-31 06:40] LABS: Chloride 94 mmol/L (98-107); Potassium 3.3 mmoL/L (3.5-5.1); Sodium 129 mmol/L (136-145)
[2021-08-31 06:41] LABS: Basophils % 0.2 % (0.1-2.0); Eosinophils % 0.2 % (0.1-12.0); Lymphocytes # 0.9 K/mm3 (0.7-4.5); Mean Corpuscular HGB Conc 33.4 g/dL (31.8-35.4); Mean Corpuscular Hemoglobin 31.3 pg (27.0-31.2); Mean Corpuscular Volume 93.8 fl (81-99); Mean Platelet Volume 7.8 fl (7.4-10.4); Monocytes # 0.6 K/mm3 (0.1-1.0); Neutrophils # 8.2 K/mm3 (1.8-7.8); Neutrophils % 84.6 % (37.0-80.0); Platelet Count 209 K/mm3 (142-424); Red Blood Count 3.51 M/mm3 (4.20-5.40); Red Cell Distribution Width 12.8 % (11.5-17.5); White Blood Count 9.7 K/mm3 (4.8-10.8)
[2021-08-31 06:43] LABS: Anion Gap 8.3 mEq/L (5-15); Blood Urea Nitrogen 15 mg/dl (7-17); Carbon Dioxide 30 mmol/L (22.0-30.0); Creatinine Clearance Estimated 48 mL/min (50-200); Estimated Glomerular Filt Rate 118 ml/min (>60); GFR (African American) 143 ML/MIN (>60)
[2021-08-31 06:44] LABS: Calcium 8.1 mg/dl (8.4-10.2); Glucose 108 mg/dl (74-100)
--- NOTE | 2021-08-31 06:56 | P.PN_ITS ---
Subjective Date: 08/31/21 Time: 06:56 Principal diagnosis: Left femoral neck fracture Interval history: She has been resting comfortably overnight. No fever, constitutional symptoms, nausea, vomiting, diarrhea. Tolerating p.o. input. Pain is tolerable. She had left eye pain and was diagnosed with left corneal abrasion overnight. PN: Obj Ex Vital signs: Temp Pulse Resp BP Pulse Ox 98.1 F 90 16 105/50 L 93 L 08/31/21 04:00 08/31/21 04:00 08/31/21 04:00 08/31/21 05:43 08/31/21 04:00 - Constitutional no acute distress - Routine HEENT Exam Eye: Present: other (Left dressing in place) - Routine Neck Exam Present: supple - Routine Respiratory Exam Absent: accessory muscle use, respiratory distress - Routine Cardiovascular Exam Present: RRR - Routine Abdominal Exam Present: soft. Absent: distended - Detailed Lower Extremity Exam Hip: Left normal inspection (Left lower extremity dressing clean, dry, intact. Grossly symmetric leg lengths. Knee immobilizer/abduction pillow in place. G rossly intact EHL, FHL, tibialis anterior, gastroc/soleus. Palpable DP/PT pulse. Sensation intact DP/SP/tibial/sural/saphenous nerve distribution.) - Urinary Catheter Management Damian Cath placed during this visit: no Urethral indwelling: Yes Progress Note: A&P (1) Pre-operative cardiovascular examination Status: Acute (2) Closed left hip fracture Status: Acute (3) Hypokalemia Status: Acute Assessment and Plan for All Diagnoses:: 81-year-old female with left femoral neck fracture status post left hip hemiarthroplasty August 30, 2021. Appreciate recognition and treatment of left corneal abrasion per primary team. Weightbearing as tolerated. Posterior hip precautions. Okay to remove knee immobilizer/abduction pillow when sitting up in chair/ambulating. PT/OT. 23 hours antibiotics. Okay to resume home dose of Eliquis today. Appreciate discharge planning per primary. Anticipate discharge to rehab near her family's home. Will follow.
--- NOTE | 2021-08-31 09:44 | P.PN_ITS ---
Internal Medicine - PN: Subj *Date: 08/31/21 *Time: 09:15 Exam Vital signs and Labs for Last 24 Hours: Temp Pulse Resp BP Pulse Ox 97.7 F 85 16 116/56 L 93 L 08/31/21 08:00 08/31/21 08:00 08/31/21 08:00 08/31/21 08:00 08/31/21 08:00 Laboratory Results - last 24 hr 08/30/21 09:18: Blood Type B Positive, Antibody Screen Negative 08/30/21 11:47: Potassium 3.5 D 08/31/21 06:09: WBC 9.7 D, RBC 3.51 L, Hgb 11.0 L, Hct 33.0 L, MCV 93.8, MCH 31.3 H, MCHC 33.4, RDW 12.8, Plt Count 209, MPV 7.8, Neut % (Auto) 84.6 H, Lymph % (Auto) 9.0 L, [place] % (Auto) 6.0, Eos % (Auto) 0.2, Baso % (Auto) 0.2, Neut # (Auto) 8.2 H, Lymph # (Auto) 0.9, [place] # (Auto) 0.6, Eos # (Auto) 0.0, Baso # (Auto) 0.0 08/31/21 06:09: Sodium 129 L, Potassium 3.3 L, Chloride 94 L, Carbon Dioxide 30, Anion Gap 8.3, BUN 15 D, Creatinine 0.50 L, Estimated Creat Clear 48, Estimated GFR 118, Est GFR ( Amer) 143, Glucose 108 H, Calcium 8.1 L I & O for Last 24 hours: Intake & Output 08/28/21 08/29/21 08/30/21 08/31/21 11:59 11:59 11:59 11:59 Intake Total 1060 / 1060 1482 / 1482 1660 / 1660 Output Total 1350 / 1350 1760 / 1760 100 / 100 Balance -290 / -290 -278 / -278 1560 / 1560 Weight 140 lb 148 lb 1.987 oz 149 lb 11.102 oz 156 lb 6.4 oz - Constitutional no acute distress - *Routine HEENT Exam Head: Present: normocephalic Eye: Present: PERRL, other ENT: Present: mucous membranes moist Comments: patch to left eye - *Routine Neck Exam Present: supple. Absent: lymphadenopathy - *Routine Respiratory Exam Present: CTA bilaterally - *Routine Cardiovascular Exam Present: RRR - *Routine Abdominal Exam Present: soft, normoactive bowel sounds. Absent: tenderness - *Routine Extremities Exam Absent: cyanosis, clubbing, edema - *Routine Skin Exam Comments: dressing c/d/i - *Routine Neurological Exam Present: alert, oriented X3 Assessment and Plan (1) Pre-operative cardiovascular examination Status: Acute Category: Medical Code(s): Z01.810 - Encounter for preprocedural cardiovascular examination (2) Closed left hip fracture Status: Acute Qualifiers: Encounter type: initial encounter Qualified Code(s): S72.002A - Fracture of unspecified part of neck of left femur, initial encounter for closed fracture Category: Medical Code(s): S72.002A - Fracture of unspecified part of neck of left femur, initial encounter for closed fracture (3) Hypokalemia Status: Acute Category: Medical Code(s): E87.6 - Hypokalemia - Assessment and plan all Dx Assessment and Plan for all problems:: rounded with dr goldstein all orders per dr [facility] to follow waiting on placement for rehab continue eye drops remove umnguia pt/ot
--- NOTE | 2021-08-31 10:03 | P.PN_ITS ---
[facility] Anesthesia Record Part II Discharge Time: 16:40 Destination: Medical Surgical Department PACU nurse assessment reviewed?: Yes Patient Condition:: Good Anesthesia Complications:: None Swallowing reflex intact?: Yes Cyanosis?: No Blood Pressure: 134/68 Pulse Rate: 78 Temperature: 99 F Mental Status: Alert & Oriented Pain level:: 0 Nausea and/or vomitting:: None Intake, IV Amount: 0 Comments:: It was made aware to me this morning that pt has corneal abrasion. Primary care team treating. Pt states this morning that left eye is feeling much better today.
--- NOTE | 2021-08-31 10:56 | HMH.PTEV ---
Physical Therapy Evaluation Rehab PT IP Evaluation Start: 08/30/21 15:30 Freq: ONCE Status: Active Protocol: Document 08/31/21 10:29 PABLO (Rec: 08/31/21 10:56 PABLO [id number]) Subjective/History History History Pt reports to [facility] following a fall that resulted in a left hip fracture surgically treated via hemiarthroplasty performed on 08/30/2021. Pt is WBAT and using an abduction pillow when in bed only. Pt reports she lives alone in a one-story house with 2-3 steps to get inside. Pt reports she has a cane and walker but was not using an AD prior to fall . Surgical History: Previous right total hip replacement Medical History: Congestive Heart Failure, Chronic Obstructive Pulmonary Disease (COPD), Coronary Artery Disease, Deep Vein Thrombosis, Gastroesophageal Reflux Disease(GERD), Hypertension, MRSA, Osteoporosis, Seizures, Urinary Tract Infection Subjective Subjective Pt reports pain with weight bearing otherwise denies issues. Rehab PT IP Eval Objective Appearance Patient Behavior Appropriate,Cooperative Patient Orientation Person,Place,Name,Birthday, Situation Difficulty following instructions none Speech Pattern Clear,Appropriate,Coherent Ambulation Patient Able to Ambulate Yes Ambulation Observation IP General Gait Pattern Observation Antalgic Gait,Decrease Weight Bear (R),Decrease Stride Lngth (R),Decrease Stride Lngth (L) Ambulation Distance (feet) 5 Ambulation Assistive Device Rolling Walker Ambulation Ability Minimal x 2 (25% assist) Balance Ability to Arise Able, uses arms to help Sitting Balance Steady, safe Standing Balance Steady, wide stance Dynamic Sitting Balance Ability Good Dynamic Standing Balance Ability Fair Transfers Bed Transfer Ability Minimal x 1 (25% assist) Chair Transfer Ability Minimal x 1 (25% assist) Sit to Stand Bed Transfer Ability Minimal x 1 (25% assist) Pain Right H
--- NOTE | 2021-08-31 11:38 | HMH.OTEV ---
OT Inpatient Evaluation Rehab OT IP Evaluation Start: 08/30/21 15:30 Freq: ONCE Status: Complete Protocol: Document 08/31/21 10:25 COREY (Rec: 08/31/21 11:37 COREY [id number]) Rehab OT IP Assessment Subjective History 81-year-old female with left femoral neck fracture as a result of a ground-level fall. She is on Eliquis at baseline secondary to history of DVT. She had a history of MRSA infection following bowel surgery years ago. Patient underwent open treatment left femoral neck fracture with left hip hemiarthroplasty on . Patient lives alone in 1 story home with 1-2 DREW. Patient ambulated independently with having weekly housekeeping help. Patient completed ADLs and fx'l mobility independently with having family for transportation as needed. Subjective I can try to get up. Instructed Patient on proper hand/foot placement to complete supine->sit @ EOB requiring Mod A x2. Patient sat up @ EOB independently. Instructed Patient on proper hand/foot placement to complete sit->stand->ambulate ~10ft to recliner with usage of RW requiring Mod A x2. Left Patient sitting up in recliner with consultation of hip precautions at end of session. Objective Patient Orientation Person,Place,Name,Birthday, Year Bed Mobility bed mobility - supine/sit Assist Level Moderate x 2 (50% assist) Transfer Training Sit/Stand/Step Transfer Assist Level Moderate x 2 (50% assist) Chair Transfer Ability Moderate x 2 (50% assist) Chair Transfer Technique Sit to/from Ambulatory Chair Transfer Assistive Devices Rolling Walker Rehab OT IP prob,goals,plan Problems Date of Evaluation: 08/31/21 OT IP Problems Bed Mobility,Transfers,Gait,
--- NOTE | 2021-08-31 17:12 | PC.NURSE ---
Pt has done well this shift. Pt has c/o left hip pain x1 this shift and was medicated per MAR. Pt has had a fair appetite this shift. Pt has c/o RAMIREZ x1 this shift, PRN Tylenol given per MAR. Pt continues to be on 4L NC w/ o2 sats 95 or less. No other acute changes, will monitor.
[2021-09-01] VITALS: O2SAT 94
--- NOTE | 2021-09-01 03:38 | PC.NURSE ---
Patient IV occluded and leaking. Patient refusing attempt to start new iv r/t dc plan to [facility] later today. Patient is tolerating po fluids at this time.
[2021-09-01 04:00] VITALS: BP 106/56; PULSE 80; RESP 18; TEMP 36.6; O2SAT 96
--- NOTE | 2021-09-01 04:56 | PC.NURSE ---
Patient has rested well this shift. Patient medicated per MAR for pain. Dressing on lt hip is CDI. Wedge inplace. Patient currently on 4l nc sats above 90%. Patient still refusing new IV r/t dc plans to [facility] later today. No complaints voiced a this time.
[2021-09-01 05:00] VITALS: BMI 27.5
[2021-09-01 07:24] LABS: Basophils % 0.3 % (0.1-2.0); Eosinophils # 0.2 K/mm3 (0.0-0.4); Hematocrit 33.2 % (37.0-47.0); Hemoglobin 11.4 g/dL (12.2-16.2); Lymphocytes % 11.7 % (10-50); Mean Corpuscular HGB Conc 34.4 g/dL (31.8-35.4); Mean Corpuscular Hemoglobin 31.5 pg (27.0-31.2); Mean Corpuscular Volume 91.5 fl (81-99); Mean Platelet Volume 8.1 fl (7.4-10.4); Monocytes # 0.5 K/mm3 (0.1-1.0); Monocytes % 6.2 % (1.7-9.3); Neutrophils # 6.7 K/mm3 (1.8-7.8); Neutrophils % 79.9 % (37.0-80.0); Platelet Count 233 K/mm3 (142-424); Red Blood Count 3.63 M/mm3 (4.20-5.40); Red Cell Distribution Width 12.8 % (11.5-17.5); White Blood Count 8.4 K/mm3 (4.8-10.8)
[2021-09-01 07:42] LABS: Chloride 94 mmol/L (98-107); Sodium 132 mmol/L (136-145)
[2021-09-01 07:43] LABS: Potassium 3.1 mmoL/L (3.5-5.1)
[2021-09-01 07:45] LABS: Blood Urea Nitrogen 14 mg/dl (7-17); Creatinine Clearance Estimated 47 mL/min (50-200); Estimated Glomerular Filt Rate 118 ml/min (>60); GFR (African American) 143 ML/MIN (>60)
[2021-09-01 07:46] LABS: Anion Gap 7.1 mEq/L (5-15); Calcium 8.8 mg/dl (8.4-10.2); Carbon Dioxide 34 mmol/L (22.0-30.0); Glucose 117 mg/dl (74-100)
[2021-09-01 08:00] VITALS: BP 99/56; PULSE 60; RESP 16; TEMP 36.9; O2SAT 95; O2SAT 96
--- NOTE | 2021-09-01 09:06 | CT_ITS ---
FINAL REPORT TECHNIQUE: Then section axial CT images of the chest were obtained with contrast. Three-D reformatted images were also obtained.This study was performed with techniques to keep radiation doses as low as reasonably achievable (ALARA). Individualized dose reduction techniques using automated exposure control or adjustment of mA and/or kV according to the patient''s size were employed. CLINICAL HISTORY: hypoxia, ? PE, soa, recent hip sx COMPARISON: October 14, 2019 FINDINGS: There is no evidence of pulmonary embolism. There is no evidence of thoracic aortic aneurysm or dissection. There is no evidence of mediastinal or hilar mass or adenopathy. There is bibasilar atelectasis. There are small bilateral pleural effusions. Ground-glass opacity in the lateral right upper lobe could represent edema or pneumonia. There is a very large hiatal hernia containing stomach and colon. Limited images of the upper abdomen demonstrate several left renal cysts. IMPRESSION: No evidence of pulmonary embolism. Very large hiatal hernia. Ground-glass opacity in the lateral right upper lobe could represent edema or pneumonia. Bibasilar atelectasis with small pleural effusions. Reviewed, Interpreted and Dictated by Cesario Arango III, MD Transcribed by Miguel Cha Authenticated and [facility]
[2021-09-01 09:15] LABS: Coronavirus 19, PCR Not Detected (NotDetected); Influenza A, PCR Not Detected (NotDetected); Influenza B, PCR Not Detected (NotDetected)
--- NOTE | 2021-09-01 09:16 | HMH.ORTHPN ---
Subjective Date: 09/01/21 Time: 09:16 Principal diagnosis: Left femoral neck fracture Interval history: She is feeling weak, short of breath this morning. No adverse events overnight. Oxygen saturation was in the low 80s without supplemental oxygen. She has oxygen saturation greater than 90 sitting up in chair on 2 L nasal cannula this morning. She denies fever, constitutional symptoms. Her left hip pain is tolerable. She denies calf pain. No nausea or vomiting. She has been ambulating with physical therapy. PN: Obj Ex Vital signs: Temp Pulse Resp BP Pulse Ox 98.4 F 60 16 99/56 L 95 09/01/21 08:00 09/01/21 08:00 09/01/21 08:00 09/01/21 08:00 09/01/21 08:00 - Constitutional mild distress - Routine HEENT Exam Head: Present: normocephalic - Routine Neck Exam Present: supple - Routine Respiratory Exam Present: CTA bilaterally, respiratory distress. Absent: accessory muscle use, decreased breath sounds - Routine Cardiovascular Exam Present: RRR - Routine Abdominal Exam Present: soft. Absent: distended - Detailed Lower Extremity Exam Hip: Left normal inspection (Left lower extremity postoperative dressing was changed to covaderm. No drainage, no surrounding erythema. Negative Homans. Intact EHL, FHL, tibialis anterior, gastrocsoleus, knee extension. Sensation intact DP/SP/tibial/sural/saphenous nerve distribution. Palpable DP/PT pulse.) - Urinary Catheter Management Damian Cath placed during this visit: no Urethral indwelling: Yes Progress Note: A&P (1) Pre-operative cardiovascular examination Status: Acute (2) Closed left hip fracture Status: Acute (3) Hypokalemia Status: Acute Assessment and Plan for All Diagnoses:: 81-year-old female status post left hip hemiarthroplasty. Ameya with primary team regarding her shortness of breath and weakness this morning. Tentatively planning for CT PE protocol, chest x-ray. Continue weightbearing as tolerated, posterior hip precautions. Will follow.
--- NOTE | 2021-09-01 09:20 | CA_ITS ---
FINAL REPORT CLINICAL HISTORY: Lt hip FX, shortness of breath, history blood clots, eval DVT. Patient scanned in chair FINDINGS: Color Doppler, duplex Doppler and compression sonography of the bilateral lower extremities was performed. There is no evidence of deep venous thrombosis from the level of the groin to the calf. The deep veins are patent and compressible. Note is made of a moderate to left popliteal cyst. IMPRESSION: No evidence of deep venous thrombosis bilateral lower extremities. Reviewed, Interpreted and Dictated by Cesario Arango III, MD Transcribed by Miguel Cha Authenticated and [facility]
[2021-09-01 16:00] VITALS: BP 116/65; PULSE 102; RESP 18; TEMP 36.8; O2SAT 93
[2021-09-01 17:25] VITALS: TEMP 37.6
--- NOTE | 2021-09-01 18:14 | HMH.ACPN2 ---
Internal Medicine - PN: Subj *Date: 09/01/21 *Time: 18:29 Interval history: 81-year-old female patient sitting up in chair, room air saturations 83%. Saturations greater than 94% on 2 L. She denies any chest pain or shortness of breath, she reports her pain is well controlled. Elastoplast dressing clean/dry/intact to left outer thigh Exam Vital signs and Labs for Last 24 Hours: Temp Pulse Resp BP Pulse Ox 99.6 F 102 H 18 116/65 93 L 09/01/21 17:25 09/01/21 16:00 09/01/21 16:00 09/01/21 16:00 09/01/21 16:00 Laboratory Results - last 24 hr 09/01/21 06:24: WBC 8.4, RBC 3.63 L, Hgb 11.4 L, Hct 33.2 L, MCV 91.5, MCH 31.5 H, MCHC 34.4, RDW 12.8, Plt Count 233, MPV 8.1, Neut % (Auto) 79.9, Lymph % (Auto) 11.7, [place] % (Auto) 6.2, Eos % (Auto) 2.0, Baso % (Auto) 0.3, Neut # (Auto) 6.7, Lymph # (Auto) 1.0, [place] # (Auto) 0.5, Eos # (Auto) 0.2, Baso # (Auto) 0.0 09/01/21 06:24: Sodium 132 L, Potassium 3.1 L, Chloride 94 L, Carbon Dioxide 34 H, Anion Gap 7.1, BUN 14, Creatinine 0.50 L, Estimated Creat Clear 47, Estimated GFR 118, Est GFR ( Amer) 143, Glucose 117 H, Calcium 8.8 09/01/21 09:05: SARS-CoV-2 (PCR) Not detected, Influenza A Untype (PCR) Not detected, Influenza Type B (PCR) Not detected I & O for Last 24 hours: Intake & Output 08/29/21 08/30/21 08/31/21 09/01/21 23:59 23:59 23:59 23:59 Intake Total 1741 / 1741 1701 / 1701 880 / 880 400 / 400 Output Total 1550 / 2070 1160 / 1160 1075 / 1075 200 / 200 Balance 191 / -329 541 / 541 -195 / -195 200 / 200 Weight 148 lb 1.987 oz 149 lb 11.102 oz 156 lb 6.4 oz 155 lb 6.814 oz - Constitutional no acute distress - *Routine HEENT Exam Head: Present: normocephalic Eye: Present: EOMI ENT: Present: mucous membranes moist - *Routine Respiratory Exam Present: CTA bilaterally. Absent: accessory muscle use - *Routine Cardiovascular Exam Present: RRR - *Routine Abdominal Exam Present: soft, normoactive bowel sounds. Absent: tenderness, firm - *Routine Extremities Exam Present: edema, pulses intact, normal capillary refill. Absent: cyanosis, clubbing, full ROM - *Routine Skin Exam Present: dry, wounds. Absent: intact, cyanosis, erythema Comments: Incision to left outer thigh edges well approximated Elastoplast intact - *Routine Neurological Exam Present: alert, oriented X3. Absent: motor deficit - Routine Psychiatric Exam Present: normal affect, normal thought process Assessment and Plan (1) Pre-operative cardiovascular examination Status: Acute Category: Medical Code(s): Z01.810 - Encounter for preprocedural cardiovascular examination (2) Closed left hip fracture Status: Acute Qualifiers: Encounter type: initial encounter Qualified Code(s): S72.002A - Fracture of unspecified part of neck of left femur, initial encounter for closed fracture Category: Medical Code(s): S72.002A - Fracture of unspecified part of neck of left femur, initial encounter for closed fracture (3) Hypokalemia Status: Acute Category: Medical Code(s): E87.6 - Hypokalemia - Assessment and plan all Dx Assessment and Plan for all problems:: Rounded with Dr. Lyon, all orders per Dr. Lyon: 1. Bilateral lower extremity venous Dopplers 2. Chest CTA
[2021-09-01 19:55] VITALS: BP 109/60; PULSE 93; RESP 17; TEMP 37.3; O2SAT 94
[2021-09-02] VITALS: O2SAT 95
[2021-09-02 04:00] VITALS: BP 115/67; PULSE 93; RESP 16; TEMP 36.5; O2SAT 95
--- NOTE | 2021-09-02 04:47 | PC.NURSE ---
Patient rested throughout night. Patient states hip pain is tolerable. Patient has ambulated to the bedside x1 assist with walker. Patient remains on 2l nc sats above 90%. Patient refusing wedge throughout night educated patient on importance.
[2021-09-02 05:00] VITALS: BMI 27.3
--- NOTE | 2021-09-02 05:08 | PC.WOUNDNOTE ---
Blanchable area lt buttock
[2021-09-02 07:18] LABS: Chloride 93 mmol/L (98-107); Sodium 131 mmol/L (136-145)
[2021-09-02 07:19] LABS: Basophils # 0.1 K/mm3 (0-0.2); Basophils % 0.9 % (0.1-2.0); Eosinophils # 0.2 K/mm3 (0.0-0.4); Eosinophils % 2.4 % (0.1-12.0); Hematocrit 33.4 % (37.0-47.0); Hemoglobin 11.3 g/dL (12.2-16.2); Lymphocytes % 13.3 % (10-50); Mean Corpuscular HGB Conc 33.7 g/dL (31.8-35.4); Mean Corpuscular Volume 91.9 fl (81-99); Monocytes # 0.5 K/mm3 (0.1-1.0); Monocytes % 6.9 % (1.7-9.3); Neutrophils # 5.6 K/mm3 (1.8-7.8); Neutrophils % 76.4 % (37.0-80.0); Platelet Count 260 K/mm3 (142-424); Red Blood Count 3.63 M/mm3 (4.20-5.40); Red Cell Distribution Width 12.6 % (11.5-17.5); White Blood Count 7.3 K/mm3 (4.8-10.8)
[2021-09-02 07:21] LABS: Blood Urea Nitrogen 10 mg/dl (7-17); Creatinine Clearance Estimated 47 mL/min (50-200); Estimated Glomerular Filt Rate 152 ml/min (>60); GFR (African American) 184 ML/MIN (>60)
[2021-09-02 07:22] LABS: Anion Gap 5.7 mEq/L (5-15); Calcium 8.7 mg/dl (8.4-10.2); Carbon Dioxide 35 mmol/L (22.0-30.0); Glucose 112 mg/dl (74-100)
[2021-09-02 07:41] LABS: Potassium 2.7 mmoL/L (3.5-5.1)
[2021-09-02 08:00] VITALS: BP 121/72; PULSE 115; RESP 18; TEMP 36.7; O2SAT 93; O2SAT 94
--- NOTE | 2021-09-02 09:09 | HMH.ORTHPN ---
Subjective Date: 09/02/21 Time: 09:09 Principal diagnosis: Left femoral neck fracture Interval history: Feels much better this morning. Oxygen saturation improved. PN: Obj Ex Vital signs: Temp Pulse Resp BP Pulse Ox 97.7 F 93 H 16 115/67 95 09/02/21 04:00 09/02/21 04:00 09/02/21 04:00 09/02/21 04:00 09/02/21 04:00 - Constitutional no acute distress - Routine HEENT Exam Head: Present: normocephalic, atraumatic Eye: Present: EOMI ENT: Present: mucous membranes moist - Routine Neck Exam Present: supple - Routine Respiratory Exam Present: CTA bilaterally. Absent: accessory muscle use - Routine Cardiovascular Exam Present: RRR - Routine Abdominal Exam Present: soft. Absent: distended - Detailed Lower Extremity Exam Hip: Left normal inspection (LLE dressing c/d/i. Symmetric leg lengths. + EHL/FHL/TA/GS/knee extension. Negative Homans. SILT DP/SP/T/Hardy/SA. 2+ DP/PT pulse.) - Urinary Catheter Management Damian Cath placed during this visit: no Urethral indwelling: Yes Progress Note: A&P (1) Pre-operative cardiovascular examination Status: Acute (2) Closed left hip fracture Status: Acute (3) Hypokalemia Status: Acute Assessment and Plan for All Diagnoses:: 81-year-old female status post left hip hemiarthroplasty. CTPE / duplex negative for DVT / PT. Continue weightbearing as tolerated, posterior hip precautions. Agree with plan for discharge to rehab today. f/u 2 weeks for wound check / repeat xrays.
--- NOTE | 2021-09-02 10:08 | HMH.DCSUM ---
General - General Admission date:: 08/28/21 Discharge date: 09/02/21 HPI HPI: this patient presented to the [facility] ed after trip type fall and brought in by ambulance for a left hip injury. She says that she was going to open a door and just went down landing on her left hip. Complains of pain in the lateral left hip with movement. She was unable to get up after the fall. She did not injure her head. She has had a previous right hip replacement. She is on Eliquis. She believes she is on this due to a previous blood clot many years ago. She has been on lifelong anticoagulation since her blood clot pt was found to have acute lt hip fx and was admitted for ortho consult and repair Hospital Course Hospital Course: Abnormal Lab Results 09/02/21 06:48: RBC 3.63 L, Hgb 11.3 L, Hct 33.4 L 09/02/21 06:48: Sodium 131 L, Potassium 2.7 L*, Chloride 93 L, Carbon Dioxide 35 H, Creatinine 0.40 L, Glucose 112 H ortho consult:81-year-old female status post left hip hemiarthroplasty. CTPE / duplex negative for DVT / PT. Continue weightbearing as tolerated, posterior hip precautions. Agree with plan for discharge to rehab today. f/u 2 weeks for wound check / repeat xrays. Discharge Plan (1) Closed left hip fracture- ortho consult-ORIF left femoral neck fracture with left hip hemiarthroplasty.Continue weightbearing as tolerated, posterior hip precautions.resume home dose of Eliquis- hx of dvt (2) Hypokalemia-stable, back to baseline (3) Pneumonia- Ground-glass opacity in the lateral right upper lobe could represent edema or pneumonia on xray- continue Zithromax for 4 more days Will dc to [facility] for rehab. Pt states she is feeling well today, o2 at 2 liters as needed to keep o2 sats above 95% Objective Vital signs: Temp Pulse Resp BP Pulse Ox 97.7 F 93 H 16 115/67 95 09/02/21 04:00 09/02/21 04:00 09/02/21 04:00 09/02/21 04:00 09/02/21 04:00 no acute distress - *Routine HEENT Exam Head: Present: normocephalic Eye: Present: PERRL ENT: Present: mucous membranes moist - *Routine Neck Exam Present: supple - *Routine Respiratory Exam Present: CTA bilaterally - *Routine Cardiovascular Exam Present: RRR - *Routine Abdominal Exam Present: soft, normoactive bowel sounds. Absent: tenderness - *Routine Extremities Exam Absent: cyanosis, clubbing, edema Comments: dressing c/d/i - *Routine Skin Exam Present: warm. Absent: rash - *Routine Neurological Exam Present: alert, oriented X3 Results Labs on day of discharge: Labs from last 24 hours 09/02/21 09/02/21 06:48 06:48 WBC 7.3 RBC 3.63 L Hgb 11.3 L Hct 33.4 L MCV 91.9 MCH 31.0 MCHC 33.7 RDW 12.6 Plt Count 260 MPV 8.0 Neut % (Auto) 76.4 Lymph % (Auto) 13.3 Swisher % (Auto) 6.9 Eos % (Auto) 2.4 Baso % (Auto) 0.9 Neut # (Auto) 5.6 Lymph # (Auto) 1.0 Swisher # (Auto) 0.5 Eos # (Auto) 0.2 Baso # (Auto) 0.1 Sodium 131 L Potassium 2.7 L* Chloride 93 L Carbon Dioxide 35 H Anion Gap 5.7 BUN 10 D Creatinine 0.40 L Estimated Creat Clear 47 Estimated GFR 152 Est GFR ( Amer) 184 D Glucose 112 H Calcium 8.7 - Additional Comments rounded with dr ward all orders per dr ward DS: Diagnosis - Discharge Diagnosis (1) Pre-operative cardiovascular examination Status: Acute (2) Closed left hip fracture Status: Acute (3) Hypokalemia Status: Acute (4) Pneumonia Status: Acute Discharge Plan - Patient Discharge Instructions ACTIVITY: Continue current activity DIET: continue same diet Patient Instructions: DI for Hip Fracture, DI for Hip Replacement, DI for Hypokalemia, DI for Surgical Site Infection, Catheter-associated Urinary Tract Infection - Follow up Plan Follow up with: Fred You JR, MD [Physician] - 1 week Anderson Lopez MD [Staff Physician] - 1 week (on rounds) Disposition: [facility]
[2021-09-02 10:15] LABS: Coronavirus 19, PCR Not Detected (NotDetected); Influenza A, PCR Not Detected (NotDetected); Influenza B, PCR Not Detected (NotDetected)
--- NOTE | 2021-09-02 13:00 | PC.NURSE ---
before being discharged patient needed two bags of potassium. currently still waiting for those to infuse.
--- NOTE | 2021-09-02 14:14 | PC.NURSE ---
called report to [facility] [place] patient to be taken by ambulance Bud's notified.
--- NOTE | 2021-09-05 15:02 | CARE MANAGER ---
Spoke with nurse at [facility] for post-discharge phone interview, she states that patient is doing well and has no needs at this time.
== END 2021-09-02 15:02 | DRG 522 ==
LOC: ER 10:12 → 2ND 10:41
PROVIDERS: Family Medicine; Nurse Anesthetist, Certified Registered; Nurse Practitioner Family; Orthopaedic Surgery; Admitting Provider Emergency Medicine; Emergency Provider Emergency Medicine; PCP Internal Medicine; Visit Provider Emergency Medicine
PROC: 0SRS0J9 Replacement of Left Hip Joint, Femoral Surface with Synthetic Substitute, Cemented, Open Approach (ICD-10-PCS; principal; 2021-08-30 12:00)
DX: S72.012A Unspecified intracapsular fracture of left femur, initial encounter for closed fracture (principal); W01.0XXA Fall on same level from slipping, tripping and stumbling without subsequent striking against object, initial encounter; I50.9 Heart failure, unspecified; J44.9 Chronic obstructive pulmonary disease, unspecified; Z86.718 Personal history of other venous thrombosis and embolism; I11.0 Hypertensive heart disease with heart failure; I25.10 Atherosclerotic heart disease of native coronary artery without angina pectoris; K21.9 Gastro-esophageal reflux disease without esophagitis; M81.0 Age-related osteoporosis without current pathological fracture; Z96.641 Presence of right artificial hip joint; E87.6 Hypokalemia; Z79.02 Long term (current) use of antithrombotics/antiplatelets
CPT/HCPCS: 27236; 36415; 51702; 71045; 71275; 73502; 73700; 80048; 80053; 81001; 83735; 84132; 85025; 86850; 93005; 93306; 93970; 94761; 97110; 97116; 97161; 97165; 97530; 97535; 99285; C1776; C9803; J0456; J2405; J2710; J3475; Q9967; U0003; U0005

== ENCOUNTER → 2021-09-14 12:10 | Outpatient (CLI) | payer MEDICARE, SELFPAY ==
[2021-09-14 12:25] LABS: Basophils # 0.1 K/mm3 (0-0.2); Basophils % 1.2 % (0.1-2.0); Eosinophils # 0.1 K/mm3 (0.0-0.4); Eosinophils % 1.4 % (0.1-12.0); Hematocrit 36.9 % (37.0-47.0); Hemoglobin 11.7 g/dL (12.2-16.2); Lymphocytes # 1.3 K/mm3 (0.7-4.5); Lymphocytes % 13.1 % (10-50); Mean Corpuscular HGB Conc 31.5 g/dL (31.8-35.4); Mean Corpuscular Hemoglobin 30.2 pg (27.0-31.2); Mean Corpuscular Volume 95.8 fl (81-99); Mean Platelet Volume 7.9 fl (7.4-10.4); Monocytes # 0.5 K/mm3 (0.1-1.0); Monocytes % 4.9 % (1.7-9.3); Neutrophils # 7.8 K/mm3 (1.8-7.8); Neutrophils % 79.5 % (37.0-80.0); Red Blood Count 3.86 M/mm3 (4.20-5.40); Red Cell Distribution Width 13.1 % (11.5-17.5); White Blood Count 9.8 K/mm3 (4.8-10.8)
[2021-09-14 12:37] LABS: Platelet Count 879 K/mm3 (142-424)
[2021-09-14 13:08] LABS: Chloride 99 mmol/L (98-107); Sodium 135 mmol/L (136-145)
[2021-09-14 13:09] LABS: Potassium 4.3 mmoL/L (3.5-5.1)
[2021-09-14 13:11] LABS: Blood Urea Nitrogen 20 mg/dl (7-17); Estimated Glomerular Filt Rate 95 ml/min (>60); GFR (African American) 116 ML/MIN (>60)
[2021-09-14 13:12] LABS: Anion Gap 11.3 mEq/L (5-15); Calcium 9.7 mg/dl (8.4-10.2); Carbon Dioxide 29 mmol/L (22.0-30.0); Glucose 104 mg/dl (74-100)
[2021-09-14 13:25] LABS: Erythrocyte Sedimentation Rate 119 mm/hr (0-30)
== END ==
PROVIDERS: PCP Internal Medicine; Visit Provider Internal Medicine
DX: R51.9 Headache, unspecified (principal); R60.9 Edema, unspecified; D64.9 Anemia, unspecified
CPT/HCPCS: 80048; 85025; 85651

== ENCOUNTER → 2021-09-16 10:00 | Outpatient (CLI) | payer MEDICARE, SELFPAY ==
--- NOTE | 2021-09-16 10:08 | XR_ITS ---
FINAL REPORT CLINICAL HISTORY: s/p hip surgery COMPARISON: August 30, 2021 FINDINGS: LEFT HIP: Two views of the left hip with an AP pelvis demonstrate no acute fracture or dislocation. The joint spaces appear normal. The visualized bony structures are well aligned. No soft tissue abnormality is seen. There are postoperative changes from bilateral hip arthroplasties which appears stable. IMPRESSION: No acute bony abnormality. Reviewed, Interpreted and Dictated by Cesario Arango III, MD Transcribed by Stefany Diaz Authenticated and [facility]
== END ==
PROVIDERS: PCP Internal Medicine; Visit Provider Orthopaedic Surgery
DX: S72.002A Fracture of unspecified part of neck of left femur, initial encounter for closed fracture (principal)
CPT/HCPCS: 73502

== ENCOUNTER → 2021-09-19 14:36 | Outpatient (CLI) | payer MEDICARE, SELFPAY ==
[2021-09-19 14:47] LABS: Coronavirus 19, PCR Not Detected (NotDetected); Influenza A, PCR Not Detected (NotDetected); Influenza B, PCR Not Detected (NotDetected)
== END ==
PROVIDERS: PCP Internal Medicine; Visit Provider Surgery
DX: R51.9 Headache, unspecified (principal); Z01.812 Encounter for preprocedural laboratory examination; Z20.822 Contact with and (suspected) exposure to COVID-19
CPT/HCPCS: C9803; U0003; U0005

== ENCOUNTER 2021-09-20 06:09 | Day surgery (SDC) | payer MEDICARE, SELFPAY ==
[2021-09-20] VITALS (9 sets, daily range): BP systolic 138–155; BP diastolic 72–93; PULSE 58–76; RESP 12–18; TEMP 36.1–36.8; O2SAT 93–97; BMI 23.9
--- NOTE | 2021-09-20 07:28 | P.PN_ITS ---
[facility] Anesthesia Checklist - Patient Identification Patient Identification: Arm Band, Verbal (Name & ) - Structural Data Admitted From: Home Planned Operative Procedure/s: Left Temporal Artery Biopsy Consent for Planned Operative Procedure(s) Verified: Yes Verified Documents: Surgical Consent - NPO Status Verified Time NPO: 00:00 - Additional verifications Anesthesia Reactions: No Hx Blood Transfusions: No Blood Transfusion Reaction: No - Airway Assessment C-Spine Mobility Assessed: Yes TMJ Mobility Assessed: Yes Dentition: Good Dentition - Neurological Assessment Level of Consciousness: Awake, Alert, Appropriate - Anesthesia Plan Anesthesia Risk discussed: Yes ASA Class: II Anesthesia Type: General [facility] History Medical History: Reports:: Cancer (skin), Congestive Heart Failure, Chronic Obstructive Pulmonary Disease (COPD), Coronary Artery Disease, Deep Vein Thrombosis, Gastroesophageal Reflux Disease(GERD), Hypertension, MRSA (incisional/abdomen), Osteoporosis, Seizures, Urinary Tract Infection Denies:: Diabetes Mellitus Type 1, Diabetes Mellitus Type 2, Internal Pacemaker *Have you ever received a pneumonia vaccine?: Yes *Have you received a flu vaccine this season?: Yes Other Medical History: Reports: Arthritis, Osteoporosis, Thyroid Disease. Denies: Blood Transfusion Reaction Anesthesia experience/problems:: none Laterality Cases: Bilateral: Tonsillectomy, Total Hip Replacement Other Surgeries: Yes: No Previous Surgery, Colonoscopy, Colon Resection, Hernia Repair, Hysterectomy-Total, Thyroidectomy. No: Pacemaker Amputation: No Fractures: Yes (hip & femur) - *Social History Last grade of school completed: Advanced degree Smoking Status: Never smoker Alcohol Intake: never Alcohol Intake Frequency:: other Substance Use Type: denies use *Occupational Status:: retired Housing: house Household Members: none *Travel in the last 8 weeks: None Family Hx:: Coronary Artery Disease, Anemia
--- NOTE | 2021-09-20 08:03 | P.OP_ITS ---
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 General anesthesia with laryngeal mask airway was achieved. Her left temporal region was prepped and draped in a st erile fashion. After infiltration local anesthetic an incision was made over the palpable pulsation in the preauricular region. The deep subcutaneous tissue was dissected with a combination of sharp dissection and electrocautery. The neurovascular bundle was free from surrounding tissue. Tissue thickening in this region was noted. Separation of individual components was deemed unwarranted. Along the proximal and distal margin of the neurovascular bundle careful dissection was utilized to circumferentially free the tissue. Silk suture ligation at both sites was completed. The intervening tissue was transected sharply and passed off for pathologic evaluation. Electrocautery was utilized to achieve additional hemostasis. Skin was reapproximated with running 6-0 nylon. Dressings were applied and patient was transferred to recovery in stable condition. Condition: stable Disposition: PACU Specimens:: Left temporal neurovascular bundle Complications:: No immediate
--- NOTE | 2021-09-20 08:25 | PC.NURSE ---
Face symmetrical, pt can raise eyebrows equally, hand kennel assistant and pedal pushes strong and equal b/l.
--- NOTE | 2021-09-20 09:49 | HMH.ANESI ---
[facility] Anesthesia Record Part I Intake, IV Amount: 800 Estimated blood loss (mL): 5 Urine output (mL): 0 Blood Pressure: 150/93 SaO2: 96 Pulse Rate: 73 Respiratory Rate: 12 Temperature: 97.0 F Patient is:: Drowsy Stable to PACU at:: 08:00
== END 2021-09-20 09:01 | disposition home or self-care (01) ==
LOC: OR 06:11
PROVIDERS: PCP Internal Medicine; Visit Provider Surgery
DX: M31.6 Other giant cell arteritis (principal); I11.0 Hypertensive heart disease with heart failure; I50.9 Heart failure, unspecified; I25.10 Atherosclerotic heart disease of native coronary artery without angina pectoris; J44.9 Chronic obstructive pulmonary disease, unspecified; M81.0 Age-related osteoporosis without current pathological fracture
CPT/HCPCS: 37609; 88305; J2405

== ENCOUNTER → 2021-10-28 12:39 | Outpatient (CLI) | payer MEDICARE, SELFPAY ==
--- NOTE | 2021-10-28 12:50 | XR_ITS ---
FINAL REPORT CLINICAL HISTORY: s/p lt hip panda COMPARISON: 09/16/2021 FINDINGS: LEFT HIP 3 views were obtained. There are stable postoperative changes from left hip arthroplasty. Postoperative changes are seen in the right hip. Degenerative changes are seen in the lumbar spine. IMPRESSION: Postoperative and degenerative changes as above. Reviewed, Interpreted and Dictated by Cesario Arango III, MD Transcribed by Peace Andrews Authenticated and [facility]
== END ==
PROVIDERS: PCP Internal Medicine; Visit Provider Orthopaedic Surgery
DX: S72.002A Fracture of unspecified part of neck of left femur, initial encounter for closed fracture (principal)
CPT/HCPCS: 73502

== ENCOUNTER → 2022-03-24 09:18 | Outpatient (CLI) | payer MEDICARE, SELFPAY ==
--- NOTE | 2022-03-24 09:23 | XR_ITS ---
FINAL REPORT CLINICAL HISTORY: S p hip fracture COMPARISON: October 2021 FINDINGS: 2 views of the left hip and an AP pelvis were obtained. There is no acute fracture or dislocation. There has been left hip arthroplasty. There are soft tissue calcifications again seen medial to the hip. There are postoperative changes of the right hip. There are degenerative changes of the lower lumbar spine. IMPRESSION: Stable postoperative changes of the left hip. Reviewed, Interpreted and Dictated by Cesario Arango III, MD Transcribed by Miguel Cha Authenticated and [facility]
== END ==
PROVIDERS: PCP Internal Medicine; Visit Provider Orthopaedic Surgery
DX: S72.002A Fracture of unspecified part of neck of left femur, initial encounter for closed fracture (principal)
CPT/HCPCS: 73502

== ENCOUNTER → 2022-08-07 17:05 | Outpatient (CLI) | payer MEDICARE, SELFPAY | PROVIDERS: PCP Internal Medicine; Visit Provider Internal Medicine | DX: N39.0 Urinary tract infection, site not specified (principal) | CPT/HCPCS: 87086 ==

== ENCOUNTER → 2022-09-15 10:09 | Outpatient (CLI) | payer MEDICARE, SELFPAY ==
--- NOTE | 2022-09-15 10:17 | XR_ITS ---
FINAL REPORT CLINICAL HISTORY: lt hip pain COMPARISON: 03/24/2022 FINDINGS: Left hip/pelvis Three views were obtained. There is no acute fracture or dislocation. There are bilateral total hip prostheses in proper position. No soft tissue abnormality is identified. IMPRESSION: No acute process. Reviewed, Interpreted and Dictated by Cayetano Bear MD Transcribed by Liliam Workman Authenticated and [facility]
== END ==
PROVIDERS: PCP Internal Medicine; Visit Provider Orthopaedic Surgery
DX: S72.002A Fracture of unspecified part of neck of left femur, initial encounter for closed fracture (principal); M25.552 Pain in left hip
CPT/HCPCS: 73502

== ENCOUNTER 2023-01-16 18:09 | Emergency (ER) | payer MEDICARE, SELFPAY ==
[2023-01-16 18:11] VITALS: BP 139/87; PULSE 75; RESP 20; TEMP 36.9; O2SAT 97; BMI 25.1
--- NOTE | 2023-01-16 18:27 | PC.NURSE ---
DR WHITE AT BEDSIDE
--- NOTE | 2023-01-16 18:35 | CT_ITS ---
PROCEDURE INFORMATION: Exam: CT Abdomen And Pelvis With Contrast Exam date and time: 01/16/2023 7:36 PM Age: 82 years old Clinical indication: Injury or trauma; Fall; Blunt; Luq; Additional info: Fall, L rib trauma, hematuria TECHNIQUE: Imaging protocol: Computed tomography of the abdomen and pelvis with contrast. Radiation optimization: All CT scans at this facility use at least one of these dose optimization techniques: automated exposure control; mA and/or kV adjustment per patient size (includes targeted exams where dose is matched to clinical indication); or iterative reconstruction. Contrast material: ISOVUE; Contrast volume: 75 ml; Contrast route: IV; REPORTING DATA: Count of CT and Cardiac NM exams in prior 12 months: This patient has received 0 known CTs and 0 known cardiac nuclear medicine studies in the 12 months prior to the current study. COMPARISON: CT ABDOMEN PELVIS WO CON 06/22/2020 1:11 PM FINDINGS: Lungs: Lingular and bilateral lower lobe compressive atelectasis. Unchanged 4 mm noncalcified nodule in the anterior right lower lobe consistent with a benign nodule. Liver: Normal. No mass. Gallbladder and bile ducts: Normal. No calcified stones. No ductal dilation. Pancreas: Normal. No ductal dilation. Spleen: Normal. No splenomegaly. Adrenal glands: Normal. No mass. Kidneys and ureters: Numerous bilateral renal cystic lesions, most of which appear consistent with simple cysts although several are too small to characterize. The largest cyst measures 2.9 cm in the left upper pole. There are 2 heterogeneous high density lesions in the left kidney measuring up to 2.0 cm. There is high attenuation material in the mid upper pole left renal calices and extending into the left renal pelvis and proximal ureter. There is associated diminished enhancement of the upper half of the left kidney. No hydronephrosis. Stomach and bowel: Massive hiatal hernia containing the stomach and transverse colon. Anastomotic suture around the sigmoid colon. Mild sigmoid colon diverticulosis. No bowel obstruction. Appendix: The appendix is not visualized. Intraperitoneal space: Unremarkable. No free air. No significant fluid collection. Vasculature: Mild aortoiliac atherosclerotic disease without aneurysm. Lymph nodes: Unremarkable. No enlarged lymph nodes. Urinary bladder: Unremarkable as visualized. Reproductive: Status post hysterectomy. Bones/joints: Minimally displaced left posterior 10th rib fracture. Fully displaced left posterior 11th rib fracture. Lumbar spine levoscoliosis with moderate to severe degenerative change. Slight grade 1 anterolisthesis of L4 over L5 secondary to facet arthropathy. Bilateral total hip arthroplasties in place. Osteopenia. Soft tissues: Unremarkable. IMPRESSION: 1. Minimally displaced left posterior 10th rib fracture. Fully displaced left posterior 11th rib fracture. 2. There is high attenuation material filling several of the left renal calices extending into the left renal pelvis which blocks excretion of contrast and causes delayed enhancement of the upper half of the left kidney. This could be secondary to hemorrhage or neoplastic disease such as transitional cell carcinoma. 3. There are several heterogeneous high attenuation left renal cortical lesions with differential including hemorrhagic cysts or renal cell carcinomas. 4. Massive hiatal hernia containing the stomach and transverse colon is unchanged. COMMENTS: Consistent with the [employer] [place] [employer]'s Incidental Findings Committee white paper (J Am Manuel Radiol 2018): Any incidental renal lesion less than 1 cm or classified as too small to characterize, or any incidental cystic renal lesion character
--- NOTE | 2023-01-16 18:39 | HMH.EDGENADL ---
Discharge Plan Disposition Patient Disposition: Xfer Short-Term Hosp Chief Complaint: Fall Prescriptions Prescriptions: No Action prednisone 20 mg tablet 20 mg PO DAILY oxybutynin chloride 10 MG tablet extended release 24 hr 10 mg PO DAILY propranolol 120 MG capsule,extended release 24 hr 120 mg PO DAILY spironolactone 50 MG tablet 50 mg PO BID apixaban 5 MG tablet 5 mg PO BID levothyroxine 200 MCG tablet 200 mcg PO DAILYDM potassium chloride 20 MEQ tablet 20 meq PO BID ferrous sulfate 325 MG tablet 325 mg PO DAILY diphenhydramine HCl 25 MG capsule 25 mg PO HS acetaminophen 500 MG tablet 500 mg PO DAILY kqquhvisnxw-qvhokljdl-tst C-Mn 1 EACH tablet 2 each PO BID aspirin 81 MG tablet,chewable 81 mg PO DAILY rjylaakl-rxt-WG-lycopen-lutein 1 EACH tablet 1 tab PO DAILY cholecalciferol (vitamin D3) 1,000 UNIT capsule 1,000 units PO BID sennosides-docusate sodium 1 EACH tablet 1 tab PO BID zinc 50 MG tablet 50 mg PO DAILY metolazone 2.5 MG tablet 5 mg PO DAILY pantoprazole 40 MG tablet,delayed release (DR/EC) 40 mg PO DAILY losartan 25 MG tablet 12.5 mg PO DAILY gabapentin 300 MG capsule 300 mg PO DIRECTED Rx Instructions: 300 mg in am and 600 mg at hs Referrals Follow up/Referrals: Rashad Hitchcock MD [Primary Care Provider] - See instructions Clinical Impressions Clinical Impression: Multiple closed fractures of ribs of left side, Gross hematuria, Left kidney injury Discharge ED Provider: Victor M Paulson General Adult HPI General Chief complaint: Fall Stated complaint: AO10/24@1430 LT side pain, blood in urine Time Seen by Provider: 01/16/23 18:12 History of Present Illness HPI narrative: 82-year-old female with history of hypertension, hyperlipidemia, bilateral hip fracture status post fixation, A-fib on [facility] presenting with fall. Patient tripped over a Tupperware couple hours prior to arrival and hit her left ribs. Since that time, patient has had multiple episodes of serene hematuria. Denies dysuria, hematuria, fevers or chills. Patient is on chronic Bactrim for UTI. No shortness of breath, but patient is having chest pain left posterior ribs. Related Data Home Medications Medication Instructions Recorded Confirmed gabapentin 300 mg capsule 300 mg PO DIRECTED Pain 03/28/17 09/15/22 losartan 25 mg tablet 12.5 mg PO DAILY Hypertension 03/28/17 09/15/22 metolazone 2.5 mg tablet 5 mg PO DAILY Fluid 03/28/17 09/15/22 pantoprazole 40 mg tablet,delayed 40 mg PO DAILY GERD 03/28/17 09/15/22 release acetaminophen 500 mg tablet 500 mg PO DAILY Pain 08/28/21 09/15/22 apixaban 5 mg tablet 5 mg PO BID Blood thinner 08/28/21 09/15/22 aspirin 81 mg chewable tablet 81 mg PO DAILY HEART HEALTH 08/28/21 09/15/22 cholecalciferol (vitamin D3) 25 1,000 units PO BID Supplement 08/28/21 09/15/22 mcg (1,000 unit) capsule diphenhydramine HCl 25 mg capsule 25 mg PO HS Allergy symptoms 08/28/21 09/15/22 ferrous sulfate 325 mg (65 mg 325 mg PO DAILY Supplement 08/28/21 09/15/22 iron) tablet dlbqirrrwjs-fjsihgggx-fki C-Mn 750 2 each PO BID Supplement 08/28/21 09/15/22 mg-600 mg-55 mg-5 mg tablet levothyroxine 200 mcg tablet 200 mcg PO DAILYDM THYROID 08/28/21 09/15/22 defrlgtc-iwx-hbqcc acid 0.4 1 tab PO DAILY VITAMIN 08/28/21 09/15/22 mg-lycopene 300 mcg-lutein 250 mcg tablet oxybutynin chloride 10 mg 10 mg PO DAILY bladder 08/28/21 09/15/22 tablet,extended release 24 hr potassium chloride 20 mEq 20 meq PO BID replacement 08/28/21 09/15/22 tablet,extended release(part/cryst) propranolol 120 mg capsule,24 120 mg PO DAILY Hypertension 08/28/21 09/15/22 hr,extended release sennosides 8.6 mg-docusate sodium 1 tab PO BID CONSTIPATION 08/28/21 09/15/22 50 mg tablet spironolactone 50 mg tablet 50 mg PO BID Fluid 08/28/21 09/15/22 zinc 50 mg tablet 50 mg PO DAILY
[2023-01-16 18:51] LABS: Microscopic, Urine URINE MICROSCOPIC (MICROSCOPIC)
[2023-01-16 19:00] LABS: Basophils % 0.3 % (0.1-2.0); Eosinophils # 0.2 K/mm3 (0.0-0.4); Eosinophils % 1.9 % (0.1-12.0); Hematocrit 43.8 % (37.0-47.0); Hemoglobin 14.7 g/dL (12.2-16.2); Lymphocytes # 1.2 K/mm3 (0.7-4.5); Lymphocytes % 10.6 % (10-50); Mean Corpuscular HGB Conc 33.5 g/dL (31.8-35.4); Mean Corpuscular Hemoglobin 31.5 pg (27.0-31.2); Mean Corpuscular Volume 94.3 fl (81-99); Mean Platelet Volume 7.8 fl (7.4-10.4); Monocytes # 0.5 K/mm3 (0.1-1.0); Monocytes % 4.7 % (1.7-9.3); Neutrophils % 82.4 % (37.0-80.0); Platelet Count 350 K/mm3 (142-424); Red Blood Count 4.65 M/mm3 (4.20-5.40); Red Cell Distribution Width 12.5 % (11.5-17.5); White Blood Count 10.9 K/mm3 (4.8-10.8)
[2023-01-16 19:20] LABS: Appearance,Urine TURBID (Clear); Bilirubin,Urine Negative (Negative); Blood, Urine 3+ (Negative); Color,Urine RED (Yellow); Glucose,Urine (UA) TRACE (Negative); Ketones,Urine Negative (Negative); Leukocyte Esterase,Urine Negative (Negative); Nitrate,Urine Negative (Negative); Protein,Urine 3+ (Negative); Specific Gravity, Urine 1.025 (1.005-1.030); Urobilinogen,Urine 0.2 EU/dl (0.2)
[2023-01-16 19:20] LABS: Alanine Aminotransferase 22 U/L (12-78); Albumin Level 4.6 g/dl (3.5-5.0); Albumin/Globulin Ratio 1.4 (1.1-1.8); Alkaline Phosphatase 97 U/L (38-126); Anion Gap 16.5 mEq/L (5-15); Aspartate Amino Transferase 52 U/L (14-36); Bilirubin,Total 0.3 mg/dl (0.2-1.3); Blood Urea Nitrogen 23 mg/dl (7-17); Calcium 9.9 mg/dl (8.4-10.2); Carbon Dioxide 29 mmol/L (22.0-30.0); Chloride 95 mmol/L (98-107); Creatinine Clearance Estimated 43 mL/min (50-200); Estimated Glomerular Filt Rate 60 ml/min (>60); GFR (African American) 72 ML/MIN (>60); Globulin 3.2 g/dL (1.3-3.2); Glucose 120 mg/dl (74-100); Potassium 4.5 mmoL/L (3.5-5.1); Sodium 136 mmol/L (136-145); Total Protein,Serum 7.8 g/dl (6.3-8.2)
[2023-01-16 19:23] LABS: Bacteria,Urine Trace /lpf; RBC,Urine TNTC #/hpf (0-3)
--- NOTE | 2023-01-16 19:27 | PC.NURSE ---
transported to CT via wheelchair and rn new grad
--- NOTE | 2023-01-16 19:44 | PC.NURSE ---
pt returned from CT via wheelchair and diamond sizer and grader
--- NOTE | 2023-01-16 20:29 | PC.NURSE ---
Called [facility] about transfer of pt for Trauma. Spoke with Myles and he to k all information. Will call back when provider is available. IVORY
--- NOTE | 2023-01-16 20:33 | PC.NURSE ---
Md @ bedside updating pt and pt's family
--- NOTE | 2023-01-16 20:44 | PC.NURSE ---
on phone with
--- NOTE | 2023-01-16 20:50 | PC.NURSE ---
patient has been accepted at ER and will be ER to ER transfer
[2023-01-16 21:47] VITALS: BP 116/64; PULSE 78; RESP 18; TEMP 36.6; O2SAT 94
--- NOTE | 2023-01-16 21:50 | PC.NURSE ---
gave verbal report to ems, parag ems on scene to transport patient to ER
--- NOTE | 2023-01-22 13:44 | PC.NURSE ---
urine results mixed urogential yonis, pt on bactrim for chronic UTI, MD Wright notified no action needed
== END 2023-01-16 21:50 | disposition short-term general hospital (02) ==
PROVIDERS: Emergency Provider Emergency Medicine; PCP Internal Medicine
DX: S22.42XA Multiple fractures of ribs, left side, initial encounter for closed fracture (principal); S37.002A Unspecified injury of left kidney, initial encounter; R31.9 Hematuria, unspecified; I10 Essential (primary) hypertension; E78.5 Hyperlipidemia, unspecified; I48.0 Paroxysmal atrial fibrillation; Z79.01 Long term (current) use of anticoagulants; W19.XXXA Unspecified fall, initial encounter
CPT/HCPCS: 74177; 80053; 81001; 85025; 87086; 99285; Q9967

== ENCOUNTER → 2023-03-13 17:09 | Outpatient (CLI) | payer MEDICARE, SELFPAY ==
[2023-03-13 18:26] LABS: Basophils % 0.4 % (0.1-2.0); Eosinophils # 0.2 K/mm3 (0.0-0.4); Eosinophils % 2.5 % (0.1-12.0); Hematocrit 40.2 % (37.0-47.0); Hemoglobin 13.2 g/dL (12.2-16.2); Lymphocytes # 1.9 K/mm3 (0.7-4.5); Lymphocytes % 30.7 % (10-50); Mean Corpuscular HGB Conc 32.8 g/dL (31.8-35.4); Mean Corpuscular Hemoglobin 30.4 pg (27.0-31.2); Mean Corpuscular Volume 92.6 fl (81-99); Mean Platelet Volume 7.3 fl (7.4-10.4); Monocytes # 0.3 K/mm3 (0.1-1.0); Monocytes % 5.6 % (1.7-9.3); Neutrophils # 3.7 K/mm3 (1.8-7.8); Neutrophils % 60.8 % (37.0-80.0); Platelet Count 360 K/mm3 (142-424); Red Blood Count 4.34 M/mm3 (4.20-5.40); Red Cell Distribution Width 12.6 % (11.5-17.5); White Blood Count 6.1 K/mm3 (4.8-10.8)
[2023-03-13 19:22] LABS: Alanine Aminotransferase 13 U/L (12-78); Albumin Level 3.9 g/dl (3.5-5.0); Albumin/Globulin Ratio 1.6 (1.1-1.8); Alkaline Phosphatase 90 U/L (38-126); Anion Gap 8.1 mEq/L (5-15); Aspartate Amino Transferase 28 U/L (14-36); Bilirubin,Total 0.3 mg/dl (0.2-1.3); Blood Urea Nitrogen 21 mg/dl (7-17); Calcium 9.2 mg/dl (8.4-10.2); Carbon Dioxide 32 mmol/L (22.0-30.0); Chloride 99 mmol/L (98-107); Estimated Glomerular Filt Rate 80 ml/min (>60); GFR (African American) 96 ML/MIN (>60); Globulin 2.5 g/dL (1.3-3.2); Glucose 83 mg/dl (74-100); Potassium 4.1 mmoL/L (3.5-5.1); Sodium 135 mmol/L (136-145); Total Protein,Serum 6.4 g/dl (6.3-8.2)
[2023-03-14 09:34] LABS: Chol/HDL Ratio 3.6 (1-3.5); Cholesterol 164 mg/dl (140-200); HDL Cholesterol 46 mg/dl (40-60); Triglycerides 109 mg/dl (30-150); VLDL Cholesterol 22 mg/dL (0-40)
[2023-03-14 09:45] LABS: Direct LDL Cholesterol 87.31 mg/dL (100-129)
== END ==
PROVIDERS: PCP Internal Medicine; Visit Provider Internal Medicine
DX: I10 Essential (primary) hypertension (principal); D62 Acute posthemorrhagic anemia; I89.0 Lymphedema, not elsewhere classified; M15.0 Primary generalized (osteo)arthritis; S37.012D Minor contusion of left kidney, subsequent encounter; Z79.01 Long term (current) use of anticoagulants; Z85.820 Personal history of malignant melanoma of skin; E78.5 Hyperlipidemia, unspecified
CPT/HCPCS: 80053; 80061; 85025

== ENCOUNTER 2024-01-10 09:53 | Outpatient (POV) | payer MEDICARE, SELFPAY | END 2024-01-10 23:59 | disposition home or self-care (01) | LOC: SC 09:54 | PROVIDERS: Visit Provider Specialist/Technologist | DX: Z00.00 Encounter for general adult medical examination without abnormal findings (principal) ==

== ENCOUNTER 2024-02-27 12:41 | Outpatient (CLI) | payer MEDICARE, SELFPAY ==
[2024-02-27 14:11] LABS: Albumin Level 3.9 g/dl (3.5-5.0); Basophils # 0.1 K/mm3 (0-0.2); Basophils % 1.1 % (0.1-2.0); Chloride 107 mmol/L (98-107); Eosinophils # 0.1 K/mm3 (0.0-0.4); Eosinophils % 1.7 % (0.1-12.0); Hematocrit 41.7 % (37.0-47.0); Hemoglobin 13.8 g/dL (12.2-16.2); Lymphocytes # 1.8 K/mm3 (0.7-4.5); Lymphocytes % 23.3 % (10-50); Mean Corpuscular HGB Conc 33.2 g/dL (31.8-35.4); Mean Corpuscular Hemoglobin 30.6 pg (27.0-31.2); Mean Corpuscular Volume 92.2 fl (81-99); Monocytes # 0.5 K/mm3 (0.1-1.0); Monocytes % 6.6 % (1.7-9.3); Neutrophils # 5.3 K/mm3 (1.8-7.8); Neutrophils % 67.2 % (37.0-80.0); Platelet Count 288 K/mm3 (142-424); Red Blood Count 4.52 M/mm3 (4.20-5.40); Red Cell Distribution Width 12.9 % (11.5-17.5); Sodium 138 mmol/L (136-145); White Blood Count 7.9 K/mm3 (4.8-10.8)
[2024-02-27 14:12] LABS: Potassium 3.8 mmoL/L (3.5-5.1)
[2024-02-27 14:14] LABS: Alanine Aminotransferase 16 U/L (12-78); Albumin/Globulin Ratio 1.4 (1.1-1.8); Alkaline Phosphatase 76 U/L (38-126); Anion Gap 8.8 mEq/L (5-15); Aspartate Amino Transferase 56 U/L (14-36); Bilirubin,Total 0.9 mg/dl (0.2-1.3); Blood Urea Nitrogen 19 mg/dl (7-17); Calcium 9.4 mg/dl (8.4-10.2); Carbon Dioxide 26 mmol/L (22.0-30.0); Estimated Glomerular Filt Rate 80 ml/min (>60); GFR (African American) 96 ML/MIN (>60); Globulin 2.8 g/dL (1.3-3.2); Glucose 99 mg/dl (74-100); Total Protein,Serum 6.7 g/dl (6.3-8.2)
== END 2024-02-27 23:59 | disposition home or self-care (01) ==
LOC: PREOP 12:42
PROVIDERS: PCP Internal Medicine; Visit Provider Otolaryngology
DX: Z01.812 Encounter for preprocedural laboratory examination (principal); H66.3X2 Other chronic suppurative otitis media, left ear
CPT/HCPCS: 80053; 85025

== ENCOUNTER 2024-03-05 07:43 | Day surgery (SDC) | payer MEDICARE, SELFPAY ==
[2024-02-27 13:23] VITALS: BMI 22.6
[2024-03-05] VITALS (9 sets, daily range): BP systolic 120–154; BP diastolic 61–93; PULSE 67–72; RESP 15–18; TEMP 36.3–36.8; O2SAT 96–100
[2024-03-05] MEDS: CIPRO 0.3%-DEX 0.1% OTIC SUSP 7.5ML 7.5 ML OT (09:07)
--- NOTE | 2024-03-05 09:21 | EXP.OP.NOTE ---
Date of procedure: 03/05/24 Pre-op Diagnosis:: Chronic serous otitis media left Post-op Diagnosis:: Chronic serous otitis media left Procedure performed:: Left tympanostomy and tube placement Surgeon:: Janak Chapa MD STOCK CAR DRIVER:: Clarisa Zuniga Anesthesia: GETA Estimated blood loss (mL): 0 Operative findings:: Markedly retracted left tympanic membrane, mucoid middle ear effusion consistent with chronic otitis media Operative note:: The patient was brought to the operating room and after adequate general anesthesia the left ear was draped in the usual sterile fashion and operating microscope to visualize the tympanic membrane a tympanostomy was made in the anterior-inferior quadrant and suction employed to clear the middle ear space of effusion. A router bobbin tube was then placed and Ciprodex drops applied and the procedure concluded. All counts correct and blood loss minimal Condition: stable Disposition: PACU Complications:: No complications
--- NOTE | 2024-03-05 09:31 | P.PNANES_ITS ---
[facility] Anesthesia Record Part I Anesthesia Record I Intake, IV Amount: 300 Hydration: Adequate Estimated blood loss (mL): 0 Urine output (mL): 0 Blood Pressure: 147/88 SaO2: 100 Pulse Rate: 67 Airway Patency: Patent Respiratory Rate: 15 Temperature: 98 F Patient is:: Awake and Stable Stable to PACU at:: 09:30
--- NOTE | 2024-03-10 09:46 | P.PNANES_ITS ---
[facility] Anesthesia Record Part II Anesthesia Record Part II Discharge Time: 10:00 Destination: Surgical Day Care (OP Surgery) PACU nurse assessment reviewed?: Yes Patient Condition:: Good Anesthesia Complications:: None Swallowing reflex intact?: Yes Airway Patency: Patent Cyanosis?: No Blood Pressure: 128/78 SaO2: 99 Respiratory Rate: 16 Pulse Rate: 70 Temperature: 97.3 F Mental Status: Alert & Oriented Pain level:: 0 Nausea and/or vomitting:: None Intake, IV Amount: 0 Hydration: Adequate
[2024-03-10 09:47] VITALS: BP 128/78; PULSE 70; RESP 16; TEMP 36.3; O2SAT 99
== END 2024-03-05 10:35 | disposition home or self-care (01) ==
PROVIDERS: PCP Internal Medicine; Visit Provider Otolaryngology
PROC: (CPT 69436; principal; 2024-03-05 09:15)
DX: H65.22 Chronic serous otitis media, left ear (principal)
CPT/HCPCS: 69436; J1100; J2405

== ENCOUNTER 2024-11-11 15:00 | Outpatient (CLI) | payer MEDICARE, SELFPAY ==
--- NOTE | 2024-11-11 15:03 | XR_ITS ---
FINAL REPORT CLINICAL HISTORY: Left knee pain and stiffness COMPARISON: None FINDINGS: LEFT KNEE 3 views of the left knee were obtained. There is no acute fracture or dislocation. There is moderate narrowing of the medial and lateral compartments of the knee. There are osteophytes of the medial and lateral joint margins. There are also osteophytes involving the undersurface of the patella. There appeared to be several small loose bodies in the posterior joint space, the largest of which measures 9.2 mm in size. IMPRESSION: Degenerative changes as described, with no acute bony abnormality. Reviewed, Interpreted and Dictated by Cayetano Bear MD Transcribed by Nayla Rice Authenticated and [facility]
--- OUTSIDE RECORDS SUMMARY | 2024-11-11 15:03 | XMS_ITS | Clinical Summary ---
Author Organization [facility] Address [address] [place] [address] Care Team Providers Care Director Of Extension Work Name Role Phone Rashad Hitchcock MD Primary Care Provider [phone] Allergies Active Allergy Reactions Criticality Noted Date Comments Garlic Unknown - Patient st ates they do not know rxn details Low 01/17/2023 Morphine Other - please docum ent in the comment field Low 01/17/2023 Patent stated that she has difficulty with this medication . Penicillins Anaphylaxis High 01/16/2023 Medications ferrous gluconate (Fergon) 324 (38 Fe) MG tablet Take 1 tablet (324 mg) by mouth 1 (one) time each day with breakfast. Active potassium chloride CR (Klor-Con M20) 20 MEQ ER tablet Take 1 tablet (20 mEq) by mouth 2 (two) times a day. Do not crush or chew. Active diphenhydrAMINE (Benadryl) 25 MG tablet Take 1 tablet (25 mg) by mouth at night if needed for itching. Active acetaminophen (Tylenol) 500 MG tablet Take 2 tablets (1,000 mg) by mouth at night if needed. Active Misc Natural Products (GLUCOSAMINE CHOND CMP DOUBLE PO) Take 1 tablet by mouth 2 (two) times a day. Active aspirin 81 MG EC tablet Take 1 tablet (81 mg) by mouth 1 (one) time each day. Active Multiple Vitamin (multivitamin) tablet Take 1 tablet by mouth 1 (one) time each day. Active senna-docusate (Cortney-Colace) 8.6-50 MG tablet Take 2 tablets by mouth 1 (one) time each day. Active zinc gluconate 50 MG tablet Take 1 tablet (50 mg) by mouth 1 (one) time each day. Active apixaban (Eliquis) 5 MG tablet Take 1 tablet (5 mg) by mouth 2 (two) times a day. Active spironolactone (Aldactone) 50 MG tablet Take 1 tablet (50 mg) by mouth 2 (two) times a day. Active metOLazone (Zaroxolyn) 5 MG tablet Take 1 tablet (5 mg) by mouth 1 (one) time each day. Active gabapentin (Neurontin) 300 MG capsule Take 1 capsule (300 mg) by mouth 2 (two) times a day. 1 capsule in the morning and 2 capsules at bedtime . Active pantoprazole (Protonix) 40 MG EC tablet Take 1 tablet (40 mg) by mouth every night. Do not crush, chew, or split. Active levothyroxine (Synthroid, Levoxyl) 200 MCG tablet Take 1 tablet (200 mcg) by mouth 1 (one) time each day before breakfast. Active oxybutynin XL (Ditropan-XL) 10 MG 24 hr tablet Take 1 tablet (10 mg) by mouth 1 (one) time each day. Do not crush, chew, or split. Active sulfamethoxazole-tr imethoprim (Bactrim) 400-80 MG tablet Take 1 tablet by mouth 1 (one) time each day. Active cholecalciferol 1000 units capsule Take 2,000 Units by mouth 1 (one) time each day. 3 Active methocarbamol (Robaxin) 750 MG tablet Take 1 tablet (750 mg) by mouth 3 (three) times a day if needed for muscle spasms. 3 Active ondansetron ODT (Zofran-ODT) 4 MG disintegrating tablet Take 1 tablet (4 mg) by mouth every 6 (six) hours if needed for nausea or vomiting. 3 Active polyethylene glycol (Miralax) 17 g packet Take 17 g by mouth 2 (two) times a day. 3 Active Active Problems Problem Noted Date Diagnosed Date UTI (urinary tract infection) 01/22/2023 Overview (01/24/2023): -Urinary urgency; Afebrile -HX of recurrent UTI -UA- Moderate leukocytes; Large blood -Fosomycin X1 dose -CTM s/s - improving per patient prior to discharge Electrolyte abnormality 01/18/2023 Overview (01/24/2023): -Hypokalemia -Continue to monitor, replace as needed COPD (chronic obstructive pulmonary disease) Overview (01/24/2023): Stable on RA Outpatient management Diaphragmatic hernia 01/17/2023 01/17/2023 Overview (01/24/2023): Outpatient management - Hx of large hiatal hernia. Dyslipidemia 01/17/2023 01/17/2023 Overview (01/24/2023): Outpatient management Hypertension 01/17/2023 01/17/2023 Overview (01/24/2023): Outpatient management Obesity 01/17/2023 01/17/2023 Overview (01/24/2023): Outpatient management Osteoarthritis 01/17/2023 01/17/2023 Overview (01/24/2023): Outpatient management Tremor 01/17/2023 01/17/2023 Overview (01/24/2023): - Benign. Outpatient management Ground-level fall 01/17/2023 Overview (01/18/2023): - Admit to SGT3 prog. - Tertiary 01/18 Rib fractures 01/17/2023 Overview (01/24/2023): - L 01-03 fxs - IS, pulmonary toilet, and multimodal pain control Stable on RA prior to discharge, pain well controlled without narcotics. Renal lesion 01/17/2023 Overview (01/24/2023): - New dx. - Unknown etiology. Urology consulted - proteinaceous vs. Hemorrhagic - RCC ruled out . Following with urology outpatient in 3 weeks Gross hematuria 01/17/2023 Overview (01/22/2023): Urology consulted - FC placed, irrigated by Urology - No kidney lac noted by Urology - 01/17: CT Urogram completed - H/H stable - 01/20: FC removed, Q6 PRV checks for 24 hours -Improving -Patient to follow up for outpatient cystoscopy in 3 weeks (02/12) Central corneal opacity of left eye 01/29/2015 01/17/2023 Overview (01/24/2023): Outpatient management Combined form of age-related cataract, both eyes 01/29/2015 01/17/2023 Overview (01/24/2023): Outpatient management Corneal laceration of left eye 01/29/2015 1 Overview (01/24/2023): Outpatient management Resolved Problems Problem Noted Date Diagnosed Date Resolved Date Anemia 01/17/2023 01/17/2023 01/24/2023 Chest pain syndrome 01/17/2023 01/17/2023 01/19/20 23 Dyspnea on exertion 01/17/2023 01/17/2023 01/18/20 23 Overview (01/17/2023): a. Normal Cardiolite GXT on 04/03/2011, Dr. Mendoza, revealing no evidence of inducible ischemia. She had poor exercise tolerance. b. Echocardiogram, 04/03/2011: Mild LVH, mild AI, mild mitral regurgitation, mild tricuspid regurgitation. c. Diastolic dysfunction by echocardiogram. Localized edema 11/28/2017 01/17/2023 01/17/2023 Fall 01/18/2023 Family History Medical History Relation Name Comments Hypertension Father Other cancer Father Relation Name Status Comments Father Social History Tobacco Use Types Packs/Day Years Used Date Smoking Tobacco: Never CAGE ASSESSMENT Answer Date Recorded Cage unable to access Not on file 01/17/2023 Cage max number of drinks Not on file 2022 Cage Beverages a week Not on file 01/17/2023 Have you ever felt you should CUT down on your d rinking? 0 01/17/2023 Have you been ANNOYED by people criticizing your drinking? 0 01/17/2023 Have you felt GUILTY about your drinking? 0 01/17/2023 Have you had a drink first t duncan in the morning ([employer]) to steady your nerves or to get rid of a hangover? 0 01/17/2023 CAGE Questionnaire Score 0 023 Comments Unknown Sex and Gender Information Value Date Recorded Sex Assigned at Not on file Legal Sex Female 7:35 PM EDT Gender Identity Not on file Sexual Orientation Not on file Last Filed Vital Signs Vital Sign Reading Time Taken Comments Blood Pressure 125/79 01/24/2023 11:09 AM EDT Pulse 83 01/24/2023 11:09 AM EDT Temperature 36.4 C (97.5 F) 01/24/2023 11:09 AM EDT Respiratory Rate 18 01/24/2023 11:09 AM EDT Oxygen Saturation 94% 01/24/2023 11:09 AM EDT Inhaled Oxygen Concentration - - Weight 62.8 kg (138 lb 7.2 oz) 01/17/2023 8:41 P M EDT Height 162.6 cm (5' 4 ) 01/17/2023 8:41 PM EDT Body Mass Index 23.76 01/17/2023 8:41 PM EDT Plan of Treatment Health Maintenance Due Date Last Done Comments [facility]-Bone Density Scan 1938 [facility]-Depression Screening 1938 [facility]-Medicare Annual Wellness (AWV) 1938 [facility]-Infant/Child/Adol SDOH Screenings 1938 [facility]- SDOH Screenings 1956 [facility]-Adult SDOH Screenings 1956 [facility]-DTaP,Tdap,and Td Vaccines (1 - Tdap) 1957 [facility]-Zoster Vaccines (1 of 2) 1988 [facility]-RSV Vaccine: 60+ Years or (1 - 1-dose 75+ series) 2013 [facility]-Pneumococcal Vaccine: 50+ Years (2 of 2 - PPSV23) 03/07/2018 03/07/2017 [id number] Vaccine ( season) 2023 12/15/2022, 01/24/2022, 08/05/2021, Additional history exists [facility]-Influenza Vaccine (#1) 2024 12/15/2022 [facility]-Obesity Intervention Completed 01/16/2023 HPV Vaccines Aged Out No longer eligi ble based on patient's age to complete this topic [facility]-HIB Vaccines Aged Out No longer e ligible based on patient's age to complete this topic [facility]-Hepatitis A Vaccines Aged Out No longer eligible based on patient's age to complete this topic [facility]-IPV Vaccines Aged Out No longer e ligible based on patient's age to complete this topic [facility]-Rotavirus Vaccines Aged Out No lo nger eligible based on patient's age to complete this topic Insurance [place] [id number] [facility] MEDICARE Advance Directives * DNR/DNI (Latest Code Status on File) Date Activated Date Inactivated Comments 01/17/2023 4:56 AM 01/24/2023 4:45 PM Question Answer Comments DNR determined on/before admission date? Yes Patient has decision-making capacity? Yes Care Teams Director Of Extension Work Relationship Specialty Start Date End Date Rashad Hitchcock MD [address] [id number] [place] [address] [facility] - General 08/06/20
== END 2024-11-11 23:59 | disposition home or self-care (01) ==
LOC: RAD 15:01
PROVIDERS: PCP Internal Medicine; Visit Provider Internal Medicine
DX: M17.12 Unilateral primary osteoarthritis, left knee (principal)
CPT/HCPCS: 73562